=== PATIENT | male | born 1960 | race American Indian/Alaskan Native ===

== ENCOUNTER 2018-12-29 13:13 | Inpatient (IN) | payer BC ==
[2018-12-29] MEDS ORDERED: SODIUM CHLORIDE 0.9% 500 ML 500 ML IV ONE ×2 (13:30→15:16)
--- NOTE | 2018-12-29 13:32 | Emergency Department Report ---
ED Shortness of Breath HPI - General Chief Complaint: Dyspnea/Respdistress Stated Complaint: SHELBY Time Seen by Provider: 12/29/18 13:17 Source: patient, RN notes reviewed Mode of arrival: Stretcher Limitations: No Limitations - History of Present Illness Initial Comments: This is a 58-year-old gentleman. This patient is not known to this provider previously. The patient recently had elective outpatient orthopedic surgery performed. He reports no other significant past medical history. He presents to the ER today with complaint of pain with shortness of breath. This started over the past 3 days. This is new or different for him. He reports that his father may have had a history of "blood clots", but is not sure. He denies physical pain at this time. Shortness of breath is constant, worsens with physical exertion, and it decreases with rest. The patient denies headache, neck pain, chest pain, abdominal pain, hematemesis, bright red blood per rectum. He denies orthopnea. MD Complaint: shortness of breath -: Gradual, days(s) Consistency: constant Improves With: other Worsens With: other Known History Of: other Context: other - Related Data Home Medications Medication Instructions Recorded Confirmed Last Taken Aspirin EC 81 mg PO BID 12/29/18 12/29/18 Unknown Ondansetron 4 mg PO Q8HR PRN 12/29/18 12/29/18 Unknown oxyCODONE /ACETAMINOPHEN 5 mg PO PRN PRN 12/29/18 12/29/18 Unknown Previous Rx's Medication Instructions Recorded Last Taken Type Ferrous Gluconate [Ferrous 324 mg PO DAILY #30 tablet 12/31/18 Unknown Rx Gluconate 324 MG] Folic Acid/Vit Bcomp&C/Cu/Znox 1 each PO QDAY #30 tablet 12/31/18 Unknown Rx [Folbee Plus Cz] Doxycycline Hyclate [Doxycycline 100 mg PO Q12HR #14 tab 01/05/19 Unknown Rx Hyclate TAB] cefUROXime [Ceftin] 500 mg PO Q12H #28 tablet 01/05/19 Unknown Rx Allergies Allergy/AdvReac Type Severity Reaction Status Date / Time No Known Allergies Allergy Unverified 12/29/18 14:01 ED Review of Systems ROS: Stated complaint: SHELBY Other details as noted in HPI Constitutional: denies: fever Eyes: denies: eye discharge ENT: denies: congestion Respiratory: shortness of breath Cardiovascular: denies: syncope Gastrointestinal: denies: nausea, vomiting, diarrhea, hematemesis, melena, hematochezia Genitourinary: denies: dysuria Musculoskeletal: denies: myalgia Skin: denies: lesions Neurological: denies: headache, numbness, paresthesias, confusion Hematological/Lymphatic: denies: easy bleeding ED Past Medical Hx - Past Medical History Previous Medical History?: No - Surgical History Past Surgical History?: Yes Additional Surgical History: Tib/Fib fracture/surgery - Social History Smoking Status: Never Smoker Substance Use Type: None - Medications Home Medications: Home Medications Medication Instructions Recorded Confirmed Last Taken Type Aspirin EC 81 mg PO BID 12/29/18 12/29/18 Unknown History Ondansetron 4 mg PO Q8HR PRN 12/29/18 12/29/18 Unknown History oxyCODONE /ACETAMINOPHEN 5 mg PO PRN PRN 12/29/18 12/29/18 Unknown History Ferrous Gluconate [Ferrous 324 mg PO DAILY #30 tablet 12/31/18 Unknown Rx Gluconate 324 MG] Folic Acid/Vit Bcomp&C/Cu/Znox 1 each PO QDAY #30 tablet 12/31/18 Unknown Rx [Folbee Plus Cz] Doxycycline Hyclate [Doxycycline 100 mg PO Q12HR #14 tab 01/05/19 Unknown Rx Hyclate TAB] cefUROXime [Ceftin] 500 mg PO Q12H #28 tablet 01/05/19 Unknown Rx ED Physical Exam - General Limitations: No Limitations General appearance: alert, in no apparent distress - Head Head exam: Present: atraumatic, normocephalic - Eye Eye exam: Present: normal appearance, EOMI. Absent: nystagmus - ENT ENT exam: Present: normal exam, normal orophraynx, mucous membranes moist, normal external ear exam - Neck Neck exam: Present: normal inspection, full ROM. Absent: tenderness, meningismus - Respiratory Respiratory exam: Present: normal lung sounds bilaterally. Absent: respiratory distress - Cardiovascular Cardiovascular Exam: Present: normal rhythm, tachycardia, normal heart sounds. Absent: bradycardia, systolic murmur, diastolic murmur, rubs, gallop - GI/Abdominal GI/Abdominal exam: Present: soft. Absent: distended, tenderness, guarding, rebound, rigid, pulsatile mass - Rectal Rectal exam: Present: deferred - Extremities Exam Extremities exam: Present: normal inspection, other (2+ pulses noted in the bilateral upper, lower extremities. There is no redness, pus or streaking. There is no palpable cord.). Absent: tenderness, calf tenderness - Back Exam Back exam: Present: normal inspection. Absent: tenderness, CVA tenderness (R), CVA tenderness (L), paraspinal tenderness, vertebral tenderness - Neurological Exam Neurological exam: Present: alert, other (there is no facial droop. The tongue is midline. Extraocular movements are intact bilaterally. Patient speaking in full complete sentences. Shoulder shrug is intact bilaterally. Hearing is grossly intact bilaterally. Visual acuity intact to finger counting and color perception at a close distance. 5/5 strength 4 extremities. Sensation intact to light touch in 4 extremities.) - Psychiatric Psychiatric exam: Present: flat affect - Skin Skin exam: Present: warm, dry, intact, normal color. Absent: rash ED Course Vital Signs 12/29/18 12/29/18 12/29/18 13:22 13:27 13:29 Temperature 98.4 F 98.4 F Pulse Rate 16 L 120 H Pulse Rate [ Right Radial] Respiratory 16 18 16 Rate Blood Pressure 168/80 Blood Pressure 168/80 [Right] O2 Sat by Pulse 99 100 100 Oximetry 12/29/18 12/29/18 12/29/18 15:10 15:17 16:55 Temperature Pulse Rate 110 H 106 H Pulse Rate [ 99 H Right Radial] Respiratory 16 16 16 Rate Blood Pressure Blood Pressure 126/63 205/106 [Right] O2 Sat by Pulse 97 96 Oximetry 12/29/18 17:23 Temperature Pulse Rate Pulse Rate [ Right Radial] Respiratory Rate Blood Pressure Blood Pressure [Right] O2 Sat by Pulse 97 Oximetry - Reevaluation(s) Reevaluation #1: 12/29/18 14:45 Differential diagnosis, including but not limited to: Symptomatic anemia, pericardial effusion, pulmonary embolism, pneumonia, acute coronary syndrome Assessment and plan: 58-year-old gentleman status post recent outpatient orthopedic surgery, with painless shortness of breath, concerning for pulmonary embolism. Bedside transthoracic echocardiogram performed by myself, of poor quality secondary to body habitus, however, no gross large effusion is noted, left ventricular ejection fraction appears to be 50-55%, there is question dilated right-sided atrium. We have recommended emergent CT scan of the chest to exclude pulmonary embolism. Leukocytosis is reviewed and appreciated, do not suspect infectious insult at this time, however, this may be a stress reaction secondary to probable pulmonary embolus Reevaluation #2: 12/29/18 15:24 Laboratory studies demonstrate hyperkalemia, renal insufficiency, hyponatremia. Renal insufficiency laboratory studies ordered. Hyperkalemia cocktail ordered. Albuterol held given possibility of atrial tachycardia. Extensive discussion had with patient. We discussed CT scan with IV contrast versus nuclear medicine study. Patient concerned about renal insufficiency at this time. He states he would prefer to have a nuclear medicine study. Nuclear medicine study is ordered. Vascular lab bilateral duplex study is ordered. Nephrology consult is requested. Hospitalist physician has been paged. Reevaluation #3: 12/29/18 15:33 Heparin drip has been ordered. Discussed case with Hospital physician, , who accepts the patient to the medical service. We will obtain inpatient ne phrology consult as well, discussed the case with Dr. Emily Childress, who will follow in consultation. He agrees with not administering albuterol at this time, given concern for atrial tachycardia. The admitting hospitalist physician has agreed to follow-up on inpatient diagnostic studies. Reevaluation #4: 12/29/18 15:55 Laboratory studies, lactic acidosis, leukocytosis, and physiologic abnormalities are appreciated. Suspect this is likely response to large clot burden, based off of the history and physical, we do not suspect acute infectious insult. The admitting hospital physician and myself agree to withhold empiric antibiotic therapy at this time. Patient's left lower extremities surgical site appears to be clean, with no redness, pus or streaking. He does not endorse any bleeding. ED Medical Decision Making - Lab Data Result diagrams: 12/31/18 04:05 01/01/19 03:39 Vital Signs 12/29/18 12/29/18 12/29/18 13:22 13:27 13:29 Temperature 98.4 F 98.4 F Pulse Rate 16 L 120 H Respiratory 16 18 16 Rate Blood Pressure 168/80 Blood Pressure 168/80 [Right] O2 Sat by Pulse 99 100 100 Oximetry Lab Results 12/29/18 Range/Units 13:23 WBC 34.5 H (4.5-11.0) K/mm3 RBC 2.91 L (3.65-5.03) M/mm3 Hgb 7.7 L (11.8-15.2) gm/dl Hct 24.3 L (35.5-45.6) % MCV 84 (84-94) fl MCH 26 L (28-32) pg MCHC 32 (32-34) % RDW 17.6 H (13.2-15.2) % Plt Count 599 H (140-440) K/mm3 Lymph # [employer] Vital Signs 12/29/18 12/29/18 12/29/18 13:22 13:27 13:29 Temperature 98.4 F 98.4 F Pulse Rate 16 L 120 H Respiratory 16 18 16 Rate Blood Pressure 168/80 Blood Pressure 168/80 [Right] O2 Sat by Pulse 99 100 100 Oximetry Lab Results 12/29/18 Range/Units 13:23 WBC 34.5 H (4.5-11.0) K/mm3 RBC 2.91 L (3.65-5.03) M/mm3 Hgb 7.7 L (11.8-15.2) gm/dl Hct 24.3 L (35.5-45.6) % MCV 84 (84-94) fl MCH 26 L (28-32) pg MCHC 32 (32-34) % RDW 17.6 H (13.2-15.2) % Plt Count 599 H (140-440) K/mm3 Lymph # [employer] Vital Signs 12/29/18 12/29/18 12/29/18 13:22 13:27 13:29 Temperature 98.4 F 98.4 F Pulse Rate 16 L 120 H Respiratory 16 18 16 Rate Blood Pressure 168/80 Blood Pressure 168/80 [Right] O2 Sat by Pulse 99 100 100 Oximetry 12/29/18 12/29/18 15:10 15:17 Temperature Pulse Rate 110 H 106 H Respiratory 16 16 Rate Blood Pressure Blood Pressure 126/63 205/106 [Right] O2 Sat by Pulse 97 96 Oximetry Lab Results 12/29/18 12/29/18 12/29/18 Range/Units 13:23 13:23 13:23 WBC 34.5 H (4.5-11.0) K/mm3 RBC 2.91 L (3.65-5.03) M/mm3 Hgb 7.7 L (11.8-15.2) gm/dl Hct 24.3 L (35.5-45.6) % MCV 84 (84-94) fl MCH 26 L (28-32) pg MCHC 32 (32-34) % RDW 17.6 H (13.2-15.2) % Plt Count 599 H (140-440) K/mm3 Lymph # [employer] PT 14.6 (12.2-14.9) Sec. INR 1.17 H (0.87-1.13) D-Dimer 493.25 H (0-234) ng/mlDDU Sodium 128 L (137-145) mmol/L Potassium 5.8 H (3.6-5.0) mmol/L Chloride 88.5 L (98-107) mmol/L Carbon Dioxide 22 (22-30) mmol/L Anion Gap 23 mmol/L BUN 41 H (9-20) mg/dL Creatinine 1.5 (0.8-1.5) mg/dL Estimated GFR 48 ml/min BUN/Creatinine Ratio 27 % Glucose 276 H (75-100) mg/dL Calcium 10.1 (8.4-10.2) mg/dL Magnesium 2.60 H (1.7-2.3) mg/dL Total Bilirubin 0.40 (0.1-1.2) mg/dL AST 18 (5-40) units/L ALT 19 (7-56) units/L Alkaline Phosphatase 76 (35-129) units/L Troponin T < 0.010 (0.00-0.029) ng/mL NT-Pro-B Natriuret Pep (0-900) pg/mL Total Protein 7.2 (6.3-8.2) g/dL Albumin 3.7 L (3.9-5) g/dL Albumin/Globulin Ratio 1.1 % 12/29/18 Range/Units 13:23 WBC (4.5-11.0) K/mm3 RBC (3.65-5.03) M/mm3 Hgb (11.8-15.2) gm/dl Hct (35.5-45.6) % MCV (84-94) fl MCH (28-32) pg MCHC (32-34) % RDW (13.2-15.2) % Plt Count (140-440) K/mm3 Lymph # PT (12.2-14.9) Sec. INR (0.87-1.13) D-Dimer (0-234) ng/mlDDU Sodium (137-145) mmol/L Potassium (3.6-5.0) mmol/L Chloride (98-107) mmol/L Carbon Dioxide (22-30) mmol/L Anion Gap mmol/L BUN (9-20) mg/dL Creatinine (0.8-1.5) mg/dL Estimated GFR ml/min BUN/Creatinine Ratio % Glucose (75-100) mg/dL Calcium (8.4-10.2) mg/dL Magnesium (1.7-2.3) mg/dL Total Bilirubin (0.1-1.2) mg/dL AST (5-40) units/L ALT (7-56) units/L Alkaline Phosphatase (35-129) units/L Troponin T (0.00-0.029) ng/mL NT-Pro-B Natriuret Pep 291.6 (0-900) pg/mL Total Protein (6.3-8.2) g/dL Albumin (3.9-5) g/dL Albumin/Globulin Ratio % - EKG Data -: EKG Interpreted by Pa Rate: tachycardia - EKG Data When compared to previous EKG there are: previous EKG unavailable 12/29/18 14:47 There is no prior EKG available for comparison. This EKG shows a tachycardic rate, ? sinus vs atrial tachycardia, there is an extreme rightward axis deviation, there is a right bundle branch block, the QTC is prolonged, there is borderline left ventricular hypertrophy, the EKG is abnormal, there is no chest pain, the EKG is not consistent with ST elevation myocardial infarction. - Radiology Data Radiology results: pending, report reviewed, image reviewed Print Report Referring Physician: KULDEEP MATUTE Patient Name: DANII HENDERSON Date of : 1960 Sex: Male Report Date: 2018-12-29 Report Status: Finalized Findings [facility] [address] [place] [address] XRay Report Signed Patient: DANII HENDERSON MR#: [id number] : 1960 Acct:[id number] Age/Sex: 58 / M ADM Date: 12/29/18 Loc: ED Attending Dr: Ordering Physician: KULDEEP MATUTE MD Date of Service: 12/29/18 Procedure(s): XR chest 1V ap Accession Number(s): [id number] cc: KULDEEP MATUTE MD Fluoro Time In Minutes: CHEST 1 VIEW INDICATION: Dyspnea. COMPARISON: None FINDINGS: Support devices: None. Heart: Within normal limits. Lungs/Pleura: No acute air space or interstitial disease. Additional findings: None. IMPRESSION: No acute findings. Signer Name: Nnamdi Petit Jr, MD Signed: 12/29/2018 2:11 PM Workstation Name: [id number] Transcribed By: TTR Dictated By: NNAMDI PETIT JR, MD Electronically Authenticated By: NNAMDI PETIT JR, MD Signed Date/Time: 12/29/18 1411 Critical Care Time: Yes Critical care time in (mins) excluding proc time.: 60 Critical care attestation.: If time is entered above; I have spent that time in minutes in the direct care of this critically ill patient, excluding procedure time. ED Disposition Clinical Impression: Acute dyspnea, Abnormal EKG, FARHAD (acute kidney injury), Hyperkalemia Disposition: OP ADMIT IP TO THIS HOSP Is pt being admited?: Yes Condition: Serious
[2018-12-29 14:04] LABS: Hematocrit 24.3 % (35.5-45.6); Hemoglobin 7.7 gm/dl (11.8-15.2); Mean Corpuscular HGB Conc 32 % (32-34); Mean Corpuscular Volume 84 fl (84-94); Platelet Count 599 K/mm3 (140-440); Red Blood Count 2.91 M/mm3 (3.65-5.03); Red Cell Distribution Width 17.6 % (13.2-15.2)
--- NOTE | 2018-12-29 14:16 | XRay Report ---
CHEST 1 VIEW INDICATION: Dyspnea. COMPARISON: None FINDINGS: Support devices: None. Heart: Within normal limits. Lungs/Pleura: No acute air space or interstitial disease. Additional findings: None. IMPRESSION: No acute findings. Signer Name: Nnamdi Petit Jr, MD Signed: 12/29/2018 2:11 PM Workstation Name: [id number]
[2018-12-29] MEDS ORDERED: HEPARIN 10,000 UNITS/10 ML VIAL IV ONE (14:46)
[2018-12-29 14:51] LABS: INR 1.17 (0.87-1.13)
[2018-12-29] MEDS ORDERED: HEPARIN/ 0.45% NACL DRIP 25,000 UNIT/500 ML BAG IV SCH (15:00)
[2018-12-29] MEDS ORDERED: HEPARIN/ 0.45% NACL DRIP 25,000 UNIT/500 ML BAG ONE (15:04)
[2018-12-29 15:10] LABS: Alanine Aminotransferase 19 units/L (7-56); Albumin 3.7 g/dL (3.9-5); BUN/Creatinine Ratio 27; Blood Urea Nitrogen 41 mg/dL (9-20); Calcium 10.1 mg/dL (8.4-10.2); Hemolysis Index 1
[2018-12-29] MEDS ORDERED: SODIUM POLYSTYRENE 15 GM/60 ML ORAL LIQD PO ONE (15:23)
[2018-12-29] MEDS ORDERED: SODIUM BICARB 8.4% 50 MEQ/50 ML SYRINGE IV ONE (15:23)
[2018-12-29] MEDS ORDERED: INSULIN REGULAR, HUMAN 100 UNITS/1 ML IV ONE (15:23)
[2018-12-29 15:31] LABS: INR 1.2 (0.87-1.13)
[2018-12-29] MEDS ORDERED: CALCIUM GLUCONATE 2,000 MG in SODIUM CHLORIDE 0.9% 100 ML IV ONE (16:23)
--- NOTE | 2018-12-29 17:02 | Nuclear Medicine Report ---
NM lung scan perf/vent INDICATION / CLINICAL INFORMATION: dyspnea. TRACER: Xenon-133 gas 12.2 mCi inhalation and technetium 99m MAA 5.2 mCi IV injection. COMPARISON: No relevant prior imaging study available. FINDINGS: Nuclear medicine ventilation and perfusion lung imaging were performed. Both are relatively homogeneo us. Negative for suspicious ventilation or perfusion defect. IMPRESSION: Low probability for pulmonary embolus. Signer Name: Michael Adair MD Signed: 12/29/2018 4:58 PM Workstation Name: [id number]
[2018-12-29 18:08] LABS: Basophils % (Manual) 0 % (0.0-1.8); Eosinophils % (Manual) 0 % (0.0-4.3); Large Platelets 1+; Myelocytes # (Manual) 0.7 K/mm3; Nucleated Red Blood Cells 1.5 % (0.0-0.9); Platelet Estimate Appears Increased; Total Cells Counted 200
[2018-12-29 18:09] LABS: Anisocytosis 1+; Hypochromasia 1+; Poikilocytosis 1+
[2018-12-29] MEDS ORDERED: ACETAMINOPHEN 325 MG TAB PO PRN (20:55)
[2018-12-29] MEDS ORDERED: ONDANSETRON 4 MG/2 ML INJ IV PRN (20:55)
[2018-12-29] MEDS ORDERED: HYDROmorphone 1 MG/1 ML INJ IV PRN (20:55)
[2018-12-29] MEDS ORDERED: oxyCODONE /ACETAMINOPHEN 5-325MG TAB PO PRN (20:55)
[2018-12-29] MEDS ORDERED: SODIUM CHLORIDE 0.9% 1000 ML 1,000 ML IV SCH (21:00)
[2018-12-29 22:59] LABS: Calcium 9.2 mg/dL (8.4-10.2)
--- NOTE | 2018-12-30 00:16 | Vascular Lab Report ---
DUPLEX DOPPLER LOWER EXTREMITY VEINS, BILATERAL INDICATION / CLINICAL INFORMATION: sob suspect pe. Acute dyspnea with shortness of breath. TECHNIQUE: Duplex doppler imaging was performed through the veins of both lower extremities using venous inocencia juvencio and other maneuvers. COMPARISON: None available. FINDINGS: RIGHT COMMON FEMORAL VEIN: Negative. RIGHT FEMORAL VEIN: Negative. RIGHT POPLITEAL VEIN: Negative. RIGHT CALF VEINS: Negative. LEFT COMMON FEMORAL VEIN: Negative. LEFT FEMORAL VEIN: Negative. LEFT POPLITEAL VEIN: Negative. LEFT CALF VEINS: Negative. ADDITIONAL FINDINGS: None. IMPRESSION: 1. No sonographic evidence for DVT in either lower extremity. Signer Name: Brit Jade MD Signed: 12/30/2018 12:12 AM Workstation Name: [id number]
[2018-12-30 01:12] LABS: Creatinine,Urine 105.6 mg/dL (0.1-20.0)
[2018-12-30] MEDS: SODIUM POLYSTYRENE 15 GM/60 ML ORAL LIQD PO ONE ×2 (01:49→02:42)
[2018-12-30] MEDS ORDERED: ONDANSETRON 4 MG/2 ML INJ IV ONE (02:17)
[2018-12-30] MEDS ORDERED: DEXTROSE 50% IN WATER (25GM) 50 ML SYRINGE IV ONE ×2 (03:05→10:28)
[2018-12-30] MEDS ORDERED: INSULIN REGULAR, HUMAN 100 UNITS/1 ML IV ONE ×2 (03:05→10:28)
[2018-12-30 04:33] LABS: Hemoglobin 6.1 gm/dl (11.8-15.2); Mean Corpuscular HGB Conc 32 % (32-34); Mean Corpuscular Volume 84 fl (84-94); Platelet Count 447 K/mm3 (140-440); Red Blood Count 2.29 M/mm3 (3.65-5.03); Red Cell Distribution Width 17.6 % (13.2-15.2)
[2018-12-30 04:36] LABS: Hematocrit 19.3 % (35.5-45.6)
[2018-12-30] MEDS ORDERED: SODIUM CHLORIDE 0.9% 500 ML 500 ML IV ONE ×2 (04:51→07:04)
[2018-12-30 04:52] LABS: Albumin 3.3 g/dL (3.9-5)
[2018-12-30 05:21] LABS: Basophils % (Manual) 0 % (0.0-1.8); Eosinophils % (Manual) 0 % (0.0-4.3); Total Cells Counted 100
[2018-12-30 05:22] LABS: Anisocytosis 1+; Hypochromasia 1+; Platelet Estimate Consistent w Auto
--- NOTE | 2018-12-30 06:48 | History and Physical Report ---
History of Present Illness Date of examination: 12/29/18 Date of admission: 12/29/18 15:34 Chief complaint: Sob for 3 days History of present illness: 58-year-old gentleman presents to the ER today with complaint of shortness of breath. This started over the past 3 days. SOB on minimal exertion.Occasional chest pain.No significant pmh.Had Tib Fib fx few months ago and hardware was removed recently. Past Medical History Previous Medical History?: No Surgical History Past Surgical History?: Yes Additional Surgical History: Tib/Fib fracture/surgery Social History Smoking Status: Never Smoker Substance Use Type: None Family History Htn,PE Medications Home Medications: Home Medications Medication Instructions Recorded Confirmed Last Taken Type Aspirin EC 81 mg PO BID 12/29/18 12/29/18 Unknown History Cephalexin 500 mg PO Q6HR 12/29/18 12/29/18 Unknown History Ondansetron 4 mg PO Q8HR PRN 12/29/18 12/29/18 Unknown History Sulfamethoxazole/Trimethoprim 800 mg PO BID 12/29/18 12/29/18 Unknown History oxyCODONE /ACETAMINOPHEN 5 mg PO PRN PRN 12/29/18 12/29/18 Unknown History Review of systems ROS: Stated complaint: SHELBY Other details as noted in HPI Constitutional: denies: fever Eyes: denies: eye discharge ENT: denies: congestion Respiratory: shortness of breath Cardiovascular: denies: syncope Gastrointestinal: denies: nausea, vomiting, diarrhea, hematemesis, melena, hematochezia Genitourinary: denies: dysuria Musculoskeletal: denies: myalgia Skin: denies: lesions Neurological: denies: headache, numbness, paresthesias, confusion Hematological/Lymphatic: denies: easy bleeding Medications and Allergies Allergies Allergy/AdvReac Type Severity Reaction Status Date / Time No Known Allergies Allergy Unverified 12/29/18 14:01 Home Medications Medication Instructions Recorded Confirmed Last Taken Type Aspirin EC 81 mg PO BID 12/29/18 12/29/18 Unknown History Cephalexin 500 mg PO Q6HR 12/29/18 12/29/18 Unknown History Ondansetron 4 mg PO Q8HR PRN 12/29/18 12/29/18 Unknown History Sulfamethoxazole/Trimethoprim 800 mg PO BID 12/29/18 12/29/18 Unknown History oxyCODONE /ACETAMINOPHEN 5 mg PO PRN PRN 12/29/18 12/29/18 Unknown History Active Meds: Active Medications Acetaminophen (Tylenol) 650 mg PO Q4H PRN PRN Reason: Pain MILD(1-3)/Fever >100.5/HURTADO Hydromorphone HCl (Dilaudid) 0.5 mg IV Q3H PRN PRN Reason: Pain , Severe (7-10) Heparin Sodium/Sodium Chloride (Heparin/ 0.45% Nacl-25,000 Unit/500 Ml) 25,000 unit in 500 mls @ 30 mls/hr IV TITR TRISTON; Protocol Last Titration: 12/30/18 04:55 Dose: 0 units/hr, 0 mls/hr Documented by: Sodium Chloride (Nacl 0.9% 1000 Ml) 1,000 mls @ 100 mls/hr IV DIRECT TRISTON Stop: 12/30/18 11:00 Last Admin: 12/29/18 21:09 Dose: 100 mls/hr Documented by: Ondansetron HCl (Zofran) 4 mg IV Q8H PRN PRN Reason: Nausea And Vomiting Last Admin: 12/29/18 21:09 Dose: 4 mg Documented by: Oxycodone/Acetaminophen (Percocet 5/325) 1 tab PO Q6H PRN PRN Reason: Pain, Moderate (4-6) Sodium Chloride (Sodium Chloride Flush Syringe 10 Ml) 10 ml IV BID [facility] Last Admin: 12/29/18 21:34 Dose: 10 ml Documented by: Sodium Chloride (Sodium Chloride Flush Syringe 10 Ml) 10 ml IV PRN PRN PRN Reason: LINE FLUSH Exam - Constitutional Vitals: Temp Pulse Resp BP Pulse Ox 98.8 F 86 16 120/57 100 12/30/18 03:32 12/30/18 06:00 12/30/18 06:00 12/30/18 06:00 12/30/18 06:00 General appearance: Present: no acute distress, well-nourished - EENT Eyes: Present: PERRL ENT: hearing intact, clear oral mucosa - Neck Neck: Present: supple, normal ROM - Respiratory Respiratory effort: normal Respiratory: bilateral: CTA - Cardiovascular Rhythm: regular (114) Heart Sounds: Present: S1 & S2. Absent: rub, click - Extremities Extremities: pulses symmetrical, No edema Peripheral Pulses: within normal limits - Abdominal General gastrointestinal: Present: soft, non-tender, non-distended, normal bowel sounds Male genitourinary: Present: normal - Integumentary Integumentary: Present: clear, warm, dry - Musculoskeletal Musculoskeletal: gait normal, strength equal bilaterally - Psychiatric Psychiatric: appropriate mood/affect, intact judgment & insight - Neurologic Neurologic: CNII-XII intact, moves all extremities Results - Labs CBC & Chem 7: 12/30/18 04:08 12/30/18 04:08 Labs: Laboratory Last Values WBC 26.4 K/mm3 (4.5-11.0) H 12/30/18 04:08 RBC 2.29 M/mm3 (3.65-5.03) L 12/30/18 04:08 Hgb 6.1 gm/dl (11.8-15.2) L 12/30/18 04:08 Hct 19.3 % (35.5-45.6) L* 12/30/18 04:08 MCV 84 fl (84-94) 12/30/18 04:08 MCH 27 pg (28-32) L 12/30/18 04:08 MCHC 32 % (32-34) 12/30/18 04:08 RDW 17.6 % (13.2-15.2) H 12/30/18 04:08 Plt Count 447 K/mm3 (140-440) H 12/30/18 04:08 Lymph # Electric Power Superintendent 12/29/18 13:23 Add Manual Diff Complete 12/30/18 04:08 Total Counted 100 12/30/18 04:08 Seg Neuts % (Manual) 85.0 % (40.0-70.0) H 12/30/18 04:08 Band Neutrophils % 0 % 12/30/18 04:08 Lymphocytes % (Manual) 12.0 % (13.4-35.0) L 12/30/18 04:08 Reactive Lymphs % (Man) 0 % 12/30/18 04:08 Monocytes % (Manual) 3.0 % (0.0-7.3) 12/30/18 04:08 Eosinophils % (Manual) 0 % (0.0-4.3) 12/30/18 04:08 Basophils % (Manual) 0 % (0.0-1.8) 12/30/18 04:08 Metamyelocytes % 0 % 12/30/18 04:08 Myelocytes % 0 % 12/30/18 04:08 Promyelocytes % 0 % 12/30/18 04:08 Blast Cells % 0 % 12/30/18 04:08 Nucleated RBC % 2.0 % (0.0-0.9) H 12/30/18 04:08 Seg Neutrophils # Man 22.4 K/mm3 (1.8-7.7) H 12/30/18 04:08 Band Neutrophils # 0.0 K/mm3 12/30/18 04:08 Lymphocytes # (Manual) 3.2 K/mm3 (1.2-5.4) 12/30/18 04:08 Abs React Lymphs (Man) 0.0 K/mm3 12/30/18 04:08 Monocytes # (Manual) 0.8 K/mm3 (0.0-0.8) 12/30/18 04:08 Eosinophils # (Manual) 0.0 K/mm3 (0.0-0.4) 12/30/18 04:08 Basophils # (Manual) 0.0 K/mm3 (0.0-0.1) 12/30/18 04:08 Metamyelocytes # 0.0 K/mm3 12/30/18 04:08 Myelocytes # 0.0 K/mm3 12/30/18 04:08 Promyelocytes # 0.0 K/mm3 12/30/18 04:08 Blast Cells # 0.0 K/mm3 12/30/18 04:08 WBC Morphology Not Reportable 12/30/18 04:08 Hypersegmented Neuts Not Reportable 12/30/18 04:08 Hyposegmented Neuts Not Reportable 12/30/18 04:08 Hypogranular Neuts Not Reportable 12/30/18 04:08 Smudge Cells Not Reportable 12/30/18 04:08 Toxic Granulation Not Reportable 12/30/18 04:08 Toxic Vacuolation Not Reportable 12/30/18 04:08 Dohle Bodies Not Reportable 12/30/18 04:08 Pelger-Huet Anomaly Not Reportable 12/30/18 04:08 Swapna Rods Not Reportable 12/30/18 04:08 Platelet Estimate Consistent w auto 12/30/18 04:08 Clumped Platelets Not Reportable 12/30/18 04:08 Plt Clumps, EDTA Not Reportable 12/30/18 04:08 Large Platelets Not Reportable 12/30/18 04:08 Giant Platelets Not Reportable 12/30/18 04:08 Platelet Satelliting Not Reportable 12/30/18 04:08 Plt Morphology Comment Not Reportable 12/30/18 04:08 RBC Morphology Not Reportable 12/30/18 04:08 Dimorphic RBCs Not Reportable 12/30/18 04:08 Polychromasia Few 12/30/18 04:08 Hypochromasia 1+ 12/30/18 04:08 Poikilocytosis Not Reportable 12/30/18 04:08 Anisocytosis 1+ 12/30/18 04:08 Microcytosis Not Reportable 12/30/18 04:08 Macrocytosis Not Reportable 12/30/18 04:08 Spherocytes Not Reportable 12/30/18 04:08 Pappenheimer Bodies Not Reportable 12/30/18 04:08 Sickle Cells Not Reportable 12/30/18 04:08 Target Cells Not Reportable 12/30/18 04:08 Tear Drop Cells Not Reportable 12/30/18 04:08 Ovalocytes Not Reportable 12/30/18 04:08 Helmet Cells Not Reportable 12/30/18 04:08 Iglesias-Cosby Bodies Not Reportable 12/30/18 04:08 [place]ledge Rings Not Reportable 12/30/18 04:08 [place] Cells Not Reportable 12/30/18 04:08 Bite Cells Not Reportable 12/30/18 04:08 Crenated Cell Not Reportable 12/30/18 04:08 Elliptocytes Not Reportable 12/30/18 04:08 Acanthocytes (Spur) Not Reportable 12/30/18 04:08 Rouleaux Not Reportable 12/30/18 04:08 Hemoglobin C Crystals Not Reportable 12/30/18 04:08 Schistocytes Not Reportable 12/30/18 04:08 Malaria parasites Not Reportable 12/30/18 04:08 Donnell Bodies Not Reportable 12/30/18 04:08 Hem Pathologist Commnt No 12/30/18 04:08 PT 14.9 Sec. (12.2-14.9) 12/29/18 15:04 INR 1.20 (0.87-1.13) H 12/29/18 15:04 APTT 20.6 Sec. (24.2-36.6) L 12/29/18 15:04 D-Dimer 493.25 ng/mlDDU (0-234) H 12/29/18 13:23 Heparin Anti-Xa Level 0.30 U.I./ml (0.3-0.7) 12/30/18 04:08 Sodium 130 mmol/L (137-145) L 12/30/18 04:08 Potassium 5.3 mmol/L (3.6-5.0) H 12/30/18 04:08 Chloride 93.5 mmol/L (98-107) L 12/30/18 04:08 Carbon Dioxide 26 mmol/L (22-30) 12/30/18 04:08 Anion Gap 16 mmol/L 12/30/18 04:08 BUN 38 mg/dL (9-20) H 12/30/18 04:08 Creatinine 1.5 mg/dL (0.8-1.5) 12/30/18 04:08 Estimated GFR 58 ml/min 12/30/18 04:08 BUN/Creatinine Ratio 25 % 12/30/18 04:08 Glucose 207 mg/dL (75-100) H 12/30/18 04:08 POC Glucose 183 (70-105) H 12/29/18 18:01 Hemoglobin A1c 6.8 % (4-6) H 12/29/18 20:56 Lactic Acid 3.80 mmol/L (0.7-2.0) H* 12/29/18 15:04 Uric Acid 8.5 mg/dL (3.5-7.6) H 12/29/18 15:33 Calcium 9.0 mg/dL (8.4-10.2) 12/30/18 04:08 Magnesium 2.60 mg/dL (1.7-2.3) H 12/29/18 13:23 Total Bilirubin 0.50 mg/dL (0.1-1.2) 12/30/18 04:08 AST 17 units/L (5-40) 12/30/18 04:08 ALT 11 units/L (7-56) 12/30/18 04:08 Alkaline Phosphatase 63 units/L (35-129) 12/30/18 04:08 Total Creatine Kinase 43 units/L (55-170) L 12/29/18 15:33 Troponin T < 0.010 ng/mL (0.00-0.029) 12/29/18 13:23 NT-Pro-B Natriuret Pep 291.6 pg/mL (0-900) 12/29/18 13:23 Total Protein 6.3 g/dL (6.3-8.2) 12/30/18 04:08 Albumin 3.3 g/dL (3.9-5) L 12/30/18 04:08 Albumin/Globulin Ratio 1.1 % 12/30/18 04:08 TSH 1.380 mlU/mL (0.270-4.200) 12/29/18 15:33 Urine Osmolality 575 Mosm/kg 12/29/18 23:40 Urine Creatinine 105.6 mg/dL (0.1-20.0) H 12/29/18 23:40 Urine Sodium 28 mmol/L 12/29/18 23:40 Blood Type A POSITIVE 12/30/18 05:10 Antibody Screen Negative 12/30/18 05:10 Crossmatch See Detail 12/30/18 05:10 Short CBC 12/29/18 12/30/18 Range/Units 13:23 04:08 WBC 34.5 H 26.4 H (4.5-11.0) K/mm3 Hgb 7.7 L 6.1 L (11.8-15.2) gm/dl Hct 24.3 L 19.3 L* (35.5-45.6) % Plt Count 599 H 447 H (140-440) K/mm3 BMP 12/29/18 12/29/18 12/29/18 13:23 22:26 23:39 Sodium 128 L 128 L Potassium 5.8 H 6.0 H 5.6 H Chloride 88.5 L 92.3 L Carbon Dioxide 22 24 BUN 41 H 40 H Creatinine 1.5 1.5 Glucose 276 H 198 H Calcium 10.1 9.2 12/30/18 04:08 Sodium 130 L Potassium 5.3 H Chloride 93.5 L Carbon Dioxide 26 BUN 38 H Creatinine 1.5 Glucose 207 H Calcium 9.0 Cardiac Enzymes 12/29/18 12/29/18 Range/Units 13:23 15:33 Total Creatine Kinase 43 L (55-170) units/L Troponin T < 0.010 (0.00-0.029) ng/mL Liver Function 12/29/18 12/30/18 Range/Units 13:23 04:08 Total Bilirubin 0.40 0.50 (0.1-1.2) mg/dL AST 18 17 (5-40) units/L ALT 19 11 (7-56) units/L Alkaline Phosphatase 76 63 (35-129) units/L Albumin 3.7 L 3.3 L (3.9-5) g/dL - Imaging and Cardiology EKG: report reviewed (Sinus tach RBBB) Chest x-ray: report reviewed Imaging and Cardiology: V/q scan low probability CXR NAF Assessment and Plan Assessment and plan: CCT 38 min Advance Directives: Yes (Full code) VTE prophylaxis?: Chemical, Mechanical Plan of care discussed with patient/family: Yes - Patient Problems (1) Sepsis Current Visit: Yes Status: Acute Qualifiers: Sepsis type: sepsis due to unspecified organism Sepsis acute organ dysfunction status: unspecified Qualified Code(s): A41.9 - Sepsis, unspecified organism Plan to address problem: Empiric abxNo source of infection Leukemias to be considered Hem onc consult Empiric abx (2) Symptomatic anemia Current Visit: Yes Status: Acute Plan to address problem: Hemolysis?? No source of bleeding Transfuse 2 units of prbc Hem onc consult requested (3) Hyponatremia Current Visit: Yes Status: Acute Plan to address problem: IV Ns for now (4) FARHAD (acute kidney injury) Current Visit: Yes Status: Acute Plan to address problem: IV fluids for now (5) Hyperkalemia Current Visit: Yes Status: Acute Plan to address problem: Treated in ER with Kayexalate and Calcium gluconate (6) DVT prophylaxis Current Visit: Yes Status: Acute Plan to address problem: on scd's and GI prophylaxis
[2018-12-30] MEDS ORDERED: VANCOMYCIN PHARMACY TO DOSE IV SCH ×2 (07:00→08:00)
--- NOTE | 2018-12-30 07:12 | Event Note ---
Date: 12/29/18 Heparin drip was started because of presumed diagnosis of Acute PE pending VQ scan Heparin drip stopped
[2018-12-30] MEDS ORDERED: CALCIUM GLUCONATE 2,000 MG in SODIUM CHLORIDE 0.9% 100 ML IV ONE (07:14)
[2018-12-30] MEDS ORDERED: SODIUM POLYSTYRENE 15 GM/60 ML ORAL LIQD PO NR (08:10)
[2018-12-30] MEDS ORDERED: VANCOMYCIN 2,000 MG in SODIUM CHLORIDE 0.9% 500 ML 500 ML IV ONE (08:30)
[2018-12-30] MEDS: CEFEPIME/NS 2 GM/100 ML 2 GM/100 ML BAG IV SCH ×3 (08:45→22:36)
[2018-12-30 09:05] LABS: Iron 20 ug/dL (49-181); Total Iron Binding Capacity 311 mcg/dL (250-450)
--- NOTE | 2018-12-30 09:59 | Consultation ---
History of Present Illness - Reason for Consult Consult date: 12/30/18 hyperkalemia - History of Present Illness The patient is a58 YO male with history significant for Obesity who presented to [facility] ED yesterday with SOB of 3 days duration. The patient had elective L LE hardware removed on 12/24/2018. Patient also reports 2 weeks h/o intermittent fever, dysuria, pinkish urine, muscle ache, one episode of vomiting, diarrhea, decreased appetite and poor PO intake. He was diagnosed with UTI and prescribed Bactrim on 12/19/2018. Patient denies abd pain, rash, melena, jaundice, cp, dizziness or syncope. Labs significant for Creatinine 1.5, K 6 and Hb 6.1. Nephrology was consulted for further evaluation. Medications and Allergies Allergies Allergy/AdvReac Type Severity Reaction Status Date / Time No Known Allergies Allergy Unverified 12/29/18 14:01 Home Medications Medication Instructions Recorded Confirmed Last Taken Type Aspirin EC 81 mg PO BID 12/29/18 12/29/18 Unknown History Cephalexin 500 mg PO Q6HR 12/29/18 12/29/18 Unknown History Ondansetron 4 mg PO Q8HR PRN 12/29/18 12/29/18 Unknown History Sulfamethoxazole/Trimethoprim 800 mg PO BID 12/29/18 12/29/18 Unknown History oxyCODONE /ACETAMINOPHEN 5 mg PO PRN PRN 12/29/18 12/29/18 Unknown History Active Meds: Active Medications Acetaminophen (Tylenol) 650 mg PO Q4H PRN PRN Reason: Pain MILD(1-3)/Fever >100.5/HURTADO Hydromorphone HCl (Dilaudid) 0.5 mg IV Q3H PRN PRN Reason: Pain , Severe (7-10) Sodium Chloride (Nacl 0.9% 1000 Ml) 1,000 mls @ 100 mls/hr IV DIRECT TRISTON Stop: 12/30/18 11:00 Last Admin: 12/29/18 21:09 Dose: 100 mls/hr Documented by: Cefepime HCl (Maxipime/Ns 2 Gm/100 Ml) 2 gm in 100 mls @ 200 mls/hr IV Q8HR TRISTON; Protocol Vancomycin HCl 2,000 mg/ (Sodium Chloride) 540 mls @ 250 mls/hr IV ONCE ONE Stop: 12/30/18 10:39 Vancomycin HCl 1,500 mg/ (Sodium Chloride) 530 mls @ 353.333 mls/hr IV Q12HR [facility] Ondansetron HCl (Zofran) 4 mg IV Q8H PRN PRN Reason: Nausea And Vomiting Last Admin: 12/29/18 21:09 Dose: 4 mg Documented by: Oxycodone/Acetaminophen (Percocet 5/325) 1 tab PO Q6H PRN PRN Reason: Pain, Moderate (4-6) Sodium Chloride (Sodium Chloride Flush Syringe 10 Ml) 10 ml IV BID [facility] Last Admin: 12/29/18 21:34 Dose: 10 ml Documented by: Sodium Chloride (Sodium Chloride Flush Syringe 10 Ml) 10 ml IV PRN PRN PRN Reason: LINE FLUSH Sodium Polystyrene Sulfonate (Kionex) 30 gm PO ONCE NR Stop: 12/30/18 10:00 Review of Systems Constitutional: weight loss, fever, anorexia, fatigue, weakness, poor appetite, no weight gain, no chills Cardiovascular: shortness of breath, dyspnea on exertion, no chest pain, no orthopnea, no palpitations, no edema, no syncope, no lightheadedness, no high blood pressure Respiratory: shortness of breath, dyspnea on exertion, no cough, no hemoptysis, no sleep apnea, no home oxygen Gastrointestinal: nausea, vomiting, diarrhea, no abdominal pain, no melena, no hematochezia, no jaundice Genitourinary Male: dysuria, hematuria, no flank pain Rectal: no bleeding Musculoskeletal: no morning stiffness, no muscle weakness, no muscle cramps Integumentary: no rash, no wounds, no jaundice Neurological: weakness, no paralysis, no convulsions, no aphasia, no change in speech, no change in mentation, no confusion, no memory loss Psychiatric: no memory loss Exam - Vital Signs Vital signs: Vital Signs Temp Pulse Resp BP Pulse Ox 98.4 F 16 L 16 168/80 99 12/29/18 13:22 12/29/18 13:22 12/29/18 13:22 12/29/18 13:22 12/29/18 13:22 - General Appearance General appearance: well-developed, well-nourished, appears stated age, other (not in distress) EENT: ATNC, PERRL, mucous membranes moist, hearing intact, vision intact Neck: Present: neck supple, trachea midline Respiratory: Clear to Ascultation Heart: regular, S1S2, no murmurs Gastrointestinal: Present: normoactive bowel sounds, obese. Absent: tenderness, distended Integumentary: no rash, other (L leg dressing noted) Neurologic: no focal deficit, no asterixis, alert and oriented x3 Musculoskeletal: Present: other (L LE trace edema noted) Results - Lab Results 12/30/18 04:08 12/30/18 04:08 Most recent lab results Calcium 9.0 mg/dL (8.4-10.2) 12/30/18 04:08 Magnesium 2.60 mg/dL (1.7-2.3) H 12/29/18 13:23 Urine Creatinine 105.6 mg/dL (0.1-20.0) H 12/29/18 23:40 Urine Sodium 28 mmol/L 12/29/18 23:40 Assessment and Plan 1. Acute kidney injury: Vasomotor FARHAD in the setting of volume depletion and sepsis. Creatinine level remains the same. Baseline creatinine 1.2. Continue IV fluids. Monitor renal function. Avoid nephrotoxic agents. Meds dosage based on GFR. 2. FEN: Hyperkalemia, patient don't want to take Kayexalate. Insulin-D50 ordered. Start on IV D5NS. Monitor lytes. 3. Anemia: PRBC. 4. SOB / Respiratory distress: V/Q scan with low prob for PE. 5. Sepsis. 6. New onset DM.
[2018-12-30 10:45] LABS: Target Cells 1+
--- NOTE | 2018-12-30 12:05 | Progress Note ---
Assessment and Plan Assessment and plan: 58-year-old man who presented to the hospital complaining of shortness of breath. Patient admitted to recently having orthopedic procedure for tib-fib fracture, denied bloody stool melena or hematemesis Past medical history; denies any chronic medical conditions, states that his father had blood clots but denies having them personally Chest x-ray; no acute findings Lower extremity Dopplers, negative for DVT VQ scan, low probability for PE Labs, revealed anemia, normocytic in nature Hyponatremia, hyperkalemia, mild rise in creatinine, max creatinine 1.5, now 1.2 Diagnosis Anemia, expected outcome after orthopedic surgery Acute kidney injury due to vasomotor nephropathy and ATN Hyperkalemia Plan Transfuse PRBC, IV fluids Hyperkalemia was medically treated DVT prophylaxis with SCDs and early ambulation given anemia History Interval history: Review of systems Constitutional: No fevers, no malaise, no joint pains CVS: No chest pain, no orthopnea, no pedal edema GI: No abdominal pain, no diarrhea, no vomiting, no constipation Respiratory: Continues to have dyspnea on exertion, no wheezing, no coughing Hospitalist Physical - Physical exam Narrative exam: General.: Appears well, no distress, nontoxic HEENT: Moist mucous membranes, extraocular muscles intact, no lymphadenopathy Neck: supple Cardiac: S1-S2 heard Lungs: clear to auscultation bilaterally Abdomen: soft , nontender, nondistended, bowel sounds positive Extremities: no edema clubbing or cyanosis Skin: no rash or lesions Neurologic: no gross focal deficits Psych: calm, and cooperative - Constitutional Vitals: Temp Pulse Resp BP Pulse Ox 98.2 F 92 H 14 111/71 97 12/30/18 09:52 12/30/18 09:00 12/30/18 09:00 12/30/18 09:00 12/30/18 09:00 General appearance: Present: no acute distress, well-nourished Results - Labs CBC & Chem 7: 12/31/18 04:05 12/31/18 04:05 Labs: Laboratory Last Values WBC 26.4 K/mm3 (4.5-11.0) H 12/30/18 04:08 RBC 2.29 M/mm3 (3.65-5.03) L 12/30/18 04:08 Hgb 6.1 gm/dl (11.8-15.2) L 12/30/18 04:08 Hct 19.3 % (35.5-45.6) L* 12/30/18 04:08 MCV 84 fl (84-94) 12/30/18 04:08 MCH 27 pg (28-32) L 12/30/18 04:08 MCHC 32 % (32-34) 12/30/18 04:08 RDW 17.6 % (13.2-15.2) H 12/30/18 04:08 Plt Count 447 K/mm3 (140-440) H 12/30/18 04:08 Lymph # Documentation Designer 12/29/18 13:23 Add Manual Diff Complete 12/30/18 04:08 Total Counted 100 12/30/18 04:08 Seg Neuts % (Manual) 85.0 % (40.0-70.0) H 12/30/18 04:08 Band Neutrophils % 0 % 12/30/18 04:08 Lymphocytes % (Manual) 12.0 % (13.4-35.0) L 12/30/18 04:08 Reactive Lymphs % (Man) 0 % 12/30/18 04:08 Monocytes % (Manual) 3.0 % (0.0-7.3) 12/30/18 04:08 Eosinophils % (Manual) 0 % (0.0-4.3) 12/30/18 04:08 Basophils % (Manual) 0 % (0.0-1.8) 12/30/18 04:08 Metamyelocytes % 0 % 12/30/18 04:08 Myelocytes % 0 % 12/30/18 04:08 Promyelocytes % 0 % 12/30/18 04:08 Blast Cells % 0 % 12/30/18 04:08 Nucleated RBC % 4.0 % (0.0-0.9) H 12/30/18 04:08 Seg Neutrophils # Man 22.4 K/mm3 (1.8-7.7) H 12/30/18 04:08 Band Neutrophils # 0.0 K/mm3 12/30/18 04:08 Lymphocytes # (Manual) 3.2 K/mm3 (1.2-5.4) 12/30/18 04:08 Abs React Lymphs (Man) 0.0 K/mm3 12/30/18 04:08 Monocytes # (Manual) 0.8 K/mm3 (0.0-0.8) 12/30/18 04:08 Eosinophils # (Manual) 0.0 K/mm3 (0.0-0.4) 12/30/18 04:08 Basophils # (Manual) 0.0 K/mm3 (0.0-0.1) 12/30/18 04:08 Metamyelocytes # 0.0 K/mm3 12/30/18 04:08 Myelocytes # 0.0 K/mm3 12/30/18 04:08 Promyelocytes # 0.0 K/mm3 12/30/18 04:08 Blast Cells # 0.0 K/mm3 12/30/18 04:08 Pathologist Review 12/30/18 04:08 WBC Morphology Not Reportable 12/30/18 04:08 Hypersegmented Neuts Not Reportable 12/30/18 04:08 Hyposegmented Neuts Not Reportable 12/30/18 04:08 Hypogranular Neuts Not Reportable 12/30/18 04:08 Smudge Cells Not Reportable 12/30/18 04:08 Toxic Granulation Not Reportable 12/30/18 04:08 Toxic Vacuolation Not Reportable 12/30/18 04:08 Dohle Bodies Not Reportable 12/30/18 04:08 Pelger-Huet Anomaly Not Reportable 12/30/18 04:08 Swapna Rods Not Reportable 12/30/18 04:08 Platelet Estimate Consistent w auto 12/30/18 04:08 Clumped Platelets Not Reportable 12/30/18 04:08 Plt Clumps, EDTA Not Reportable 12/30/18 04:08 Large Platelets Not Reportable 12/30/18 04:08 Giant Platelets Not Reportable 12/30/18 04:08 Platelet Satelliting Not Reportable 12/30/18 04:08 Plt Morphology Comment Not Reportable 12/30/18 04:08 RBC Morphology Not Reportable 12/30/18 04:08 Dimorphic RBCs Not Reportable 12/30/18 04:08 Polychromasia 1+ 12/30/18 04:08 Hypochromasia 1+ 12/30/18 04:08 Poikilocytosis Not Reportable 12/30/18 04:08 Anisocytosis 1+ 12/30/18 04:08 Microcytosis Not Reportable 12/30/18 04:08 Macrocytosis Not Reportable 12/30/18 04:08 Spherocytes Not Reportable 12/30/18 04:08 Pappenheimer Bodies Not Reportable 12/30/18 04:08 Sickle Cells Not Reportable 12/30/18 04:08 Target Cells 1+ 12/30/18 04:08 Tear Drop Cells Not Reportable 12/30/18 04:08 Ovalocytes Not Reportable 12/30/18 04:08 Helmet Cells Not Reportable 12/30/18 04:08 [place] Bodies Not Reportable 12/30/18 04:08 Emmet Rings Not Reportable 12/30/18 04:08 Willis Cells Not Reportable 12/30/18 04:08 Bite Cells Not Reportable 12/30/18 04:08 Crenated Cell Not Reportable 12/30/18 04:08 Elliptocytes Not Reportable 12/30/18 04:08 Acanthocytes (Spur) Not Reportable 12/30/18 04:08 Rouleaux Not Reportable 12/30/18 04:08 Hemoglobin C Crystals Not Reportable 12/30/18 04:08 Schistocytes Not Reportable 12/30/18 04:08 Malaria parasites Not Reportable 12/30/18 04:08 Donnell Bodies Not Reportable 12/30/18 04:08 Hem Pathologist Commnt Sent to pathology 12/30/18 04:08 PT 14.9 Sec. (12.2-14.9) 12/29/18 15:04 INR 1.20 (0.87-1.13) H 12/29/18 15:04 APTT 20.6 Sec. (24.2-36.6) L 12/29/18 15:04 D-Dimer 493.25 ng/mlDDU (0-234) H 12/29/18 13:23 Heparin Anti-Xa Level 0.30 U.I./ml (0.3-0.7) 12/30/18 04:08 Sodium 130 mmol/L (137-145) L 12/30/18 04:08 Potassium 5.3 mmol/L (3.6-5.0) H 12/30/18 04:08 Chloride 93.5 mmol/L (98-107) L 12/30/18 04:08 Carbon Dioxide 26 mmol/L (22-30) 12/30/18 04:08 Anion Gap 16 mmol/L 12/30/18 04:08 BUN 38 mg/dL (9-20) H 12/30/18 04:08 Creatinine 1.5 mg/dL (0.8-1.5) 12/30/18 04:08 Estimated GFR 58 ml/min 12/30/18 04:08 BUN/Creatinine Ratio 25 % 12/30/18 04:08 Glucose 207 mg/dL (75-100) H 12/30/18 04:08 POC Glucose 183 (70-105) H 12/29/18 18:01 Hemoglobin A1c 6.8 % (4-6) H 12/29/18 20:56 Lactic Acid 3.80 mmol/L (0.7-2.0) H* 12/29/18 15:04 Uric Acid 8.5 mg/dL (3.5-7.6) H 12/29/18 15:33 Calcium 9.0 mg/dL (8.4-10.2) 12/30/18 04:08 Magnesium 2.60 mg/dL (1.7-2.3) H 12/29/18 13:23 Iron 20 ug/dL (49-181) L 12/30/18 07:27 TIBC 311 mcg/dL (250-450) 12/30/18 07:27 Ferritin 127.9 ng/mL (13.0-400.0) 12/30/18 08:22 Total Bilirubin 0.50 mg/dL (0.1-1.2) 12/30/18 04:08 AST 17 units/L (5-40) 12/30/18 04:08 ALT 11 units/L (7-56) 12/30/18 04:08 Alkaline Phosphatase 63 units/L (35-129) 12/30/18 04:08 Lactate Dehydrogenase 167 units/L (91-180) 12/30/18 07:27 Total Creatine Kinase 43 units/L (55-170) L 12/29/18 15:33 Troponin T < 0.010 ng/mL (0.00-0.029) 12/29/18 13:23 NT-Pro-B Natriuret Pep 291.6 pg/mL (0-900) 12/29/18 13:23 Total Protein 6.3 g/dL (6.3-8.2) 12/30/18 04:08 Albumin 3.3 g/dL (3.9-5) L 12/30/18 04:08 Albumin/Globulin Ratio 1.1 % 12/30/18 04:08 Vitamin B12 328.2 pg/mL (211-911) 12/30/18 08:22 Folate 5.32 ng/mL (7.3-26.0) L 12/30/18 08:22 TSH 1.380 mlU/mL (0.270-4.200) 12/29/18 15:33 Urine Osmolality 575 Mosm/kg 12/29/18 23:40 Urine Creatinine 105.6 mg/dL (0.1-20.0) H 12/29/18 23:40 Urine Sodium 28 mmol/L 12/29/18 23:40 Blood Type A POSITIVE 12/30/18 05:10 Antibody Screen Negative 12/30/18 05:10 Crossmatch See Detail 12/30/18 05:10 Active Medications - Current Medications Current Medications: Generic Name Dose Route Start Last Admin Trade Name Freq PRN Reason Stop Dose Admin Acetaminophen 650 mg 12/29/18 20:55 Tylenol PO Q4H PRN Pain MILD(1-3)/Fever >100.5/HURTADO Hydromorphone HCl 0.5 mg 12/29/18 20:55 Dilaudid IV Q3H PRN Pain , Severe (7-10) Cefepime HCl 2 gm in 100 mls @ 200 mls/hr 12/30/18 07:34 Maxipime/Ns 2 Gm/100 Ml IV Q8HR TRISTON Protocol Vancomycin HCl 1,500 mg/ 530 mls @ 353.333 mls/hr 12/30/18 22:00 Sodium Chloride IV Q12HR TRISTON Dextrose/Sodium Chloride 1,000 mls @ 75 mls/hr 12/30/18 11:00 D5ns IV DIRECT TRISTON Ondansetron HCl 4 mg 12/29/18 20:55 12/29/18 21:09 Zofran IV 4 mg Q8H PRN Administration Nausea And Vomiting Oxycodone/Acetaminophen 1 tab 12/29/18 20:55 Percocet 5/325 PO Q6H PRN Pain, Moderate (4-6) Sodium Chloride 10 ml 12/29/18 22:00 12/30/18 11:47 Sodium Chloride Flush Syringe 10 Ml IV 10 ml BID TRISTON Administration Sodium Chloride 10 ml 12/29/18 20:55 12/30/18 11:47 Sodium Chloride Flush Syringe 10 Ml IV 10 ml PRN PRN Administration LINE FLUSH
[2018-12-30 12:23] LABS: Bilirubin,Urine NEG (Negative); Blood,Urine NEG (Negative); Color,Urine Yellow (Yellow); Mucus,Urine FEW /HPF; Protein,Urine <15 mg/dL mg/dL (Negative); Urobilinogen,Urine < 2.0 mg/dL (<2.0)
--- NOTE | 2018-12-30 12:44 | Consultation ---
History of Present Illness - Reason for Consult Consult date: 12/30/18 leukocytosis Requesting physician: LIV JACKSON - History of Present Illness 57 y/o male with of left tibial plataeu fracture sustained in [place], [place] in December 2017 s/p external fixator then underwent ORIF and removal of external fixator on 01/09/[address] Pringle - Ortho at [facility]. During that admission a CT shows marked comminuted intra-articular fracture of prox left tibia. he reports he felt sick with "diarrhea, malaise by 12/19/2018. He said diarrhea was liquid, 3-4 x a day and resolved after 4 days. He went to be seen at [facility] ED found to have a mild UTI on 12/19/2018 given bactrim for 10 days. His internal fixator hardware was removed on 12/24/2018 and he was sent on keflex for 6 days. His surgical wound has been bleeding soaking the surgical dressing but he denies fever, chills, surgical site pain. he has noted calf edema.. He is to see his ortho provider in a week to remove april. He takes aspirin. He came to the ED on 12/29/2018 due to 3-day history of progressive SOB, ALATORRE and malaise. In the ED, temp 98.4, HR 120, R 16, BP 168/80. WBC 34.5. Hg 7.7 --> 6.1.Plat 599. Na 128. Creat 1.5. Lactate 3.4. UA negative. Blood culture 12/29/2018 no growth today. ID consulted due to worsening leukocytosis. Review of Systems: General: no fever, chills, no malaise Cutaneous: no rash, pruritus Head: no headaches or injury Eyes: no changes in vision, eye pain, double vision Ears: no ear pain, ear discharge, ringing or hearing loss Nose: no runny nose, no stuffiness Mouth & throat: no bleeding gums, no horseness, no dental problems, or swollen glands Neck: no pain, node enlargement/lumps, tyroid enlargement or tenderness Respiratory: + SOB, no cough, no ALATORRE, wheezing, sputum, hemoptysis, pleuritic chest pain Cardiovascular: no chest pain, leg edema, cyanosis, ALATORRE, orthopnea Musculoskeletal: + left calf edema Gastrointestinal: no nausea, no vomiting, no hematemesis, diarrhea, constipation, melena, bright red blood in stools, fecal incontinence, jaundice Genitourinary/Reproductive: no frequent urination, dysuria, hematuria, incontinence Neurogical: no seizures, no headaches, no weakness, no paresthesias, no loss of speech or vision; no memory loss, no vertigo, no tremors, no numbness Psychiatric: stable mood; no excessive anxiety, sadness or moodiness Medications and Allergies Allergies Allergy/AdvReac Type Severity Reaction Status Date / Time No Known Allergies Allergy Unverified 12/29/18 14:01 Home Medications Medication Instructions Recorded Confirmed Last Taken Type Aspirin EC 81 mg PO BID 12/29/18 12/29/18 Unknown History Cephalexin 500 mg PO Q6HR 12/29/18 12/29/18 Unknown History Ondansetron 4 mg PO Q8HR PRN 12/29/18 12/29/18 Unknown History Sulfamethoxazole/Trimethoprim 800 mg PO BID 12/29/18 12/29/18 Unknown History oxyCODONE /ACETAMINOPHEN 5 mg PO PRN PRN 12/29/18 12/29/18 Unknown History Active Meds: Active Medications Acetaminophen (Tylenol) 650 mg PO Q4H PRN PRN Reason: Pain MILD(1-3)/Fever >100.5/HURTADO Hydromorphone HCl (Dilaudid) 0.5 mg IV Q3H PRN PRN Reason: Pain , Severe (7-10) Cefepime HCl (Maxipime/Ns 2 Gm/100 Ml) 2 gm in 100 mls @ 200 mls/hr IV Q8HR TRISTON; Protocol Vancomycin HCl 1,500 mg/ (Sodium Chloride) 530 mls @ 353.333 mls/hr IV Q12HR TRISTON Dextrose/Sodium Chloride (D5ns) 1,000 mls @ 75 mls/hr IV DIRECT TRISTON Ondansetron HCl (Zofran) 4 mg IV Q8H PRN PRN Reason: Nausea And Vomiting Last Admin: 12/29/18 21:09 Dose: 4 mg Documented by: Oxycodone/Acetaminophen (Percocet 5/325) 1 tab PO Q6H PRN PRN Reason: Pain, Moderate (4-6) Sodium Chloride (Sodium Chloride Flush Syringe 10 Ml) 10 ml IV BID TRISTON Last Admin: 12/30/18 11:47 Dose: 10 ml Documented by: Sodium Chloride (Sodium Chloride Flush Syringe 10 Ml) 10 ml IV PRN PRN PRN Reason: LINE FLUSH Last Admin: 12/30/18 11:47 Dose: 10 ml Documented by: Physical Examination - Physical Exam Narrative exam: General appearance: Alert in NAD Eyes: anicteric sclerae, moist conjunctivae; no lid-lag; PERRLA HENT: Atraumatic; oropharynx clear with moist mucous membranes and no mucosal ulcerations/no oral thrush; normal hard and soft palate. Lungs: CTA, with normal respiratory effort and no intercostal retractions CV: RRR no murmur Abdomen: Soft, non-tender Extremities: +left calf with edema, there are 2 surgical wound with april with old blood soaking the dressings, inner surgical wound with bloody drainage thick Skin: No rash. Psych: Appropriate affect, alert and oriented to person, place and time. Neuro: alert and oriented x 3. Moving all extermities - Constitutional Vitals: Vital Signs Temp Pulse Resp BP Pulse Ox 97.7 F 90 19 121/79 100 12/30/18 12:07 12/30/18 12:30 12/30/18 12:30 12/30/18 12:30 12/30/18 12:30 Temperature -Last 24 Hours Temperature 97.7 F Temperature 97.7 F Temperature 98.2 F Temperature 97.4 F Temperature 98.8 F Temperature 99 F Temperature 99 F Temperature 98.4 F Temperature 98.4 F Results - Labs CBC & Chem 7: 12/30/18 04:08 12/30/18 04:08 Labs: Abnormal lab results 12/29/18 12/29/18 12/29/18 Range/Units 13:23 13:23 13:23 WBC 34.5 H (4.5-11.0) K/mm3 RBC 2.91 L (3.65-5.03) M/mm3 Hgb 7.7 L (11.8-15.2) gm/dl Hct 24.3 L (35.5-45.6) % MCH 26 L (28-32) pg RDW 17.6 H (13.2-15.2) % Plt Count 599 H (140-440) K/mm3 Seg Neuts % (Manual) 78.5 H (40.0-70.0) % Lymphocytes % (Manual) (13.4-35.0) % Nucleated RBC % 1.5 H (0.0-0.9) % Seg Neutrophils # Man 27.1 H (1.8-7.7) K/mm3 Monocytes # (Manual) 1.0 H (0.0-0.8) K/mm3 INR 1.17 H (0.87-1.13) APTT (24.2-36.6) Sec. D-Dimer 493.25 H (0-234) ng/mlDDU Heparin Anti-Xa Level (0.3-0.7) U.I./ml Sodium 128 L (137-145) mmol/L Potassium 5.8 H (3.6-5.0) mmol/L Chloride 88.5 L (98-107) mmol/L BUN 41 H (9-20) mg/dL Glucose 276 H (75-100) mg/dL POC Glucose (70-105) Hemoglobin A1c (4-6) % Lactic Acid (0.7-2.0) mmol/L Uric Acid (3.5-7.6) mg/dL Magnesium 2.60 H (1.7-2.3) mg/dL Iron (49-181) ug/dL Total Creatine Kinase (55-170) units/L Albumin 3.7 L (3.9-5) g/dL Folate (7.3-26.0) ng/mL Urine Creatinine (0.1-20.0) mg/dL Crossmatch 12/29/18 12/29/18 12/29/18 Range/Units 14:55 15:04 15:04 WBC (4.5-11.0) K/mm3 RBC (3.65-5.03) M/mm3 Hgb (11.8-15.2) gm/dl Hct (35.5-45.6) % MCH (28-32) pg RDW (13.2-15.2) % Plt Count (140-440) K/mm3 Seg Neuts % (Manual) (40.0-70.0) % Lymphocytes % (Manual) (13.4-35.0) % Nucleated RBC % (0.0-0.9) % Seg Neutrophils # Man (1.8-7.7) K/mm3 Monocytes # (Manual) (0.0-0.8) K/mm3 INR 1.20 H (0.87-1.13) APTT (24.2-36.6) Sec. D-Dimer (0-234) ng/mlDDU Heparin Anti-Xa Level (0.3-0.7) U.I./ml Sodium (137-145) mmol/L Potassium (3.6-5.0) mmol/L Chloride (98-107) mmol/L BUN (9-20) mg/dL Glucose (75-100) mg/dL POC Glucose (70-105) Hemoglobin A1c (4-6) % Lactic Acid 3.40 H* 3.80 H* (0.7-2.0) mmol/L Uric Acid (3.5-7.6) mg/dL Magnesium (1.7-2.3) mg/dL Iron (49-181) ug/dL Total Creatine Kinase (55-170) units/L Albumin (3.9-5) g/dL Folate (7.3-26.0) ng/mL Urine Creatinine (0.1-20.0) mg/dL Crossmatch 12/29/18 12/29/18 12/29/18 Range/Units 15:04 15:33 15:33 WBC (4.5-11.0) K/mm3 RBC (3.65-5.03) M/mm3 Hgb (11.8-15.2) gm/dl Hct (35.5-45.6) % MCH (28-32) pg RDW (13.2-15.2) % Plt Count (140-440) K/mm3 Seg Neuts % (Manual) (40.0-70.0) % Lymphocytes % (Manual) (13.4-35.0) % Nucleated RBC % (0.0-0.9) % Seg Neutrophils # Man (1.8-7.7) K/mm3 Monocytes # (Manual) (0.0-0.8) K/mm3 INR (0.87-1.13) APTT 20.6 L (24.2-36.6) Sec. D-Dimer (0-234) ng/mlDDU Heparin Anti-Xa Level (0.3-0.7) U.I./ml Sodium (137-145) mmol/L Potassium (3.6-5.0) mmol/L Chloride (98-107) mmol/L BUN (9-20) mg/dL Glucose (75-100) mg/dL POC Glucose (70-105) Hemoglobin A1c (4-6) % Lactic Acid (0.7-2.0) mmol/L Uric Acid 8.5 H (3.5-7.6) mg/dL Magnesium (1.7-2.3) mg/dL Iron (49-181) ug/dL Total Creatine Kinase 43 L (55-170) units/L Albumin (3.9-5) g/dL Folate (7.3-26.0) ng/mL Urine Creatinine (0.1-20.0) mg/dL Crossmatch 12/29/18 12/29/18 12/29/18 Range/Units 15:50 16:04 18:01 WBC (4.5-11.0) K/mm3 RBC (3.65-5.03) M/mm3 Hgb (11.8-15.2) gm/dl Hct (35.5-45.6) % MCH (28-32) pg RDW (13.2-15.2) % Plt Count (140-440) K/mm3 Seg Neuts % (Manual) (40.0-70.0) % Lymphocytes % (Manual) (13.4-35.0) % Nucleated RBC % (0.0-0.9) % Seg Neutrophils # Man (1.8-7.7) K/mm3 Monocytes # (Manual) (0.0-0.8) K/mm3 INR (0.87-1.13) APTT (24.2-36.6) Sec. D-Dimer (0-234) ng/mlDDU Heparin Anti-Xa Level < 0.10 L (0.3-0.7) U.I./ml Sodium (137-145) mmol/L Potassium (3.6-5.0) mmol/L Chloride (98-107) mmol/L BUN (9-20) mg/dL Glucose (75-100) mg/dL POC Glucose 258 H 183 H (70-105) Hemoglobin A1c (4-6) % Lactic Acid (0.7-2.0) mmol/L Uric Acid (3.5-7.6) mg/dL Magnesium (1.7-2.3) mg/dL Iron (49-181) ug/dL Total Creatine Kinase (55-170) units/L Albumin (3.9-5) g/dL Folate (7.3-26.0) ng/mL Urine Creatinine (0.1-20.0) mg/dL Crossmatch 12/29/18 12/29/18 12/29/18 Range/Units 20:56 21:09 22:26 WBC (4.5-11.0) K/mm3 RBC (3.65-5.03) M/mm3 Hgb (11.8-15.2) gm/dl Hct (35.5-45.6) % MCH (28-32) pg RDW (13.2-15.2) % Plt Count (140-440) K/mm3 Seg Neuts % (Manual) (40.0-70.0) % Lymphocytes % (Manual) (13.4-35.0) % Nucleated RBC % (0.0-0.9) % Seg Neutrophils # Man (1.8-7.7) K/mm3 Monocytes # (Manual) (0.0-0.8) K/mm3 INR (0.87-1.13) APTT (24.2-36.6) Sec. D-Dimer (0-234) ng/mlDDU Heparin Anti-Xa Level 0.98 H (0.3-0.7) U.I./ml Sodium 128 L (137-145) mmol/L Potassium 6.0 H (3.6-5.0) mmol/L Chloride 92.3 L (98-107) mmol/L BUN 40 H (9-20) mg/dL Glucose 198 H (75-100) mg/dL POC Glucose (70-105) Hemoglobin A1c 6.8 H (4-6) % Lactic Acid (0.7-2.0) mmol/L Uric Acid (3.5-7.6) mg/dL Magnesium (1.7-2.3) mg/dL Iron (49-181) ug/dL Total Creatine Kinase (55-170) units/L Albumin (3.9-5) g/dL Folate (7.3-26.0) ng/mL Urine Creatinine (0.1-20.0) mg/dL Crossmatch 12/29/18 12/29/18 12/30/18 Range/Units 23:39 23:40 04:08 WBC 26.4 H (4.5-11.0) K/mm3 RBC 2.29 L (3.65-5.03) M/mm3 Hgb 6.1 L (11.8-15.2) gm/dl Hct 19.3 L* (35.5-45.6) % MCH 27 L (28-32) pg RDW 17.6 H (13.2-15.2) % Plt Count 447 H (140-440) K/mm3 Seg Neuts % (Manual) 85.0 H (40.0-70.0) % Lymphocytes % (Manual) 12.0 L (13.4-35.0) % Nucleated RBC % 4.0 H (0.0-0.9) % Seg Neutrophils # Man 22.4 H (1.8-7.7) K/mm3 Monocytes # (Manual) (0.0-0.8) K/mm3 INR (0.87-1.13) APTT (24.2-36.6) Sec. D-Dimer (0-234) ng/mlDDU Heparin Anti-Xa Level (0.3-0.7) U.I./ml Sodium (137-145) mmol/L Potassium 5.6 H (3.6-5.0) mmol/L Chloride (98-107) mmol/L BUN (9-20) mg/dL Glucose (75-100) mg/dL POC Glucose (70-105) Hemoglobin A1c (4-6) % Lactic Acid (0.7-2.0) mmol/L Uric Acid (3.5-7.6) mg/dL Magnesium (1.7-2.3) mg/dL Iron (49-181) ug/dL Total Creatine Kinase (55-170) units/L Albumin (3.9-5) g/dL Folate (7.3-26.0) ng/mL Urine Creatinine 105.6 H (0.1-20.0) mg/dL Crossmatch 12/30/18 12/30/18 12/30/18 Range/Units 04:08 05:10 07:27 WBC (4.5-11.0) K/mm3 RBC (3.65-5.03) M/mm3 Hgb (11.8-15.2) gm/dl Hct (35.5-45.6) % MCH (28-32) pg RDW (13.2-15.2) % Plt Count (140-440) K/mm3 Seg Neuts % (Manual) (40.0-70.0) % Lymphocytes % (Manual) (13.4-35.0) % Nucleated RBC % (0.0-0.9) % Seg Neutrophils # Man (1.8-7.7) K/mm3 Monocytes # (Manual) (0.0-0.8) K/mm3 INR (0.87-1.13) APTT (24.2-36.6) Sec. D-Dimer (0-234) ng/mlDDU Heparin Anti-Xa Level (0.3-0.7) U.I./ml Sodium 130 L (137-145) mmol/L Potassium 5.3 H (3.6-5.0) mmol/L Chloride 93.5 L (98-107) mmol/L BUN 38 H (9-20) mg/dL Glucose 207 H (75-100) mg/dL POC Glucose (70-105) Hemoglobin A1c (4-6) % Lactic Acid (0.7-2.0) mmol/L Uric Acid (3.5-7.6) mg/dL Magnesium (1.7-2.3) mg/dL Iron 20 L (49-181) ug/dL Total Creatine Kinase (55-170) units/L Albumin 3.3 L (3.9-5) g/dL Folate (7.3-26.0) ng/mL Urine Creatinine (0.1-20.0) mg/dL Crossmatch See Detail 12/30/18 Range/Units 08:22 WBC (4.5-11.0) K/mm3 RBC (3.65-5.03) M/mm3 Hgb (11.8-15.2) gm/dl Hct (35.5-45.6) % MCH (28-32) pg RDW (13.2-15.2) % Plt Count (140-440) K/mm3 Seg Neuts % (Manual) (40.0-70.0) % Lymphocytes % (Manual) (13.4-35.0) % Nucleated RBC % (0.0-0.9) % Seg Neutrophils # Man (1.8-7.7) K/mm3 Monocytes # (Manual) (0.0-0.8) K/mm3 INR (0.87-1.13) APTT (24.2-36.6) Sec. D-Dimer (0-234) ng/mlDDU Heparin Anti-Xa Level (0.3-0.7) U.I./ml Sodium (137-145) mmol/L Potassium (3.6-5.0) mmol/L Chloride (98-107) mmol/L BUN (9-20) mg/dL Glucose (75-100) mg/dL POC Glucose (70-105) Hemoglobin A1c (4-6) % Lactic Acid (0.7-2.0) mmol/L Uric Acid (3.5-7.6) mg/dL Magnesium (1.7-2.3) mg/dL Iron (49-181) ug/dL Total Creatine Kinase (55-170) units/L Albumin (3.9-5) g/dL Folate 5.32 L (7.3-26.0) ng/mL Urine Creatinine (0.1-20.0) mg/dL Crossmatch Assessment and Plan Cultures: Blood culture 12/29/2018 no growth today. Assessment: 57 y/o male with of left tibial plataeu fracture s/p internal fixator hardware was removed on 12/24/[address] Pringle - [facility] at [facility], he had also recent diarrhea and a UTI treated with bactrim, admitted on 12/29/2018 with 3-day history of progressive SOB, ALATORRE and malaise: 1) SIRS: present on admission with tachycardia, leukocytosis, elevated lactate; noted severe anemia and left calf surgical wound with bleeding/oozing since surgery. DDx ? surgical site hematoma ?infected hematoma ? C diff (recent diarrhea after antibiotics-diarrhea is now resolved) ?surgical site cellulitis ?osteomyelitis. Lactate 3.4. UA negative. Blood culture 12/29/2018 no growth today. 2) History of left tibial plateau fracture sustained in [place], [place] in December 2017 s/p external fixator then underwent ORIF and removal of external fixator on 01/09/[address] Pringle - [facility]ette at [facility]. During that admission a CT shows marked comminuted intra-articular fracture of prox left tibia. His internal fixator hardware was removed on 12/24/2018 and he was sent on keflex for 6 days. His surgical wound has been bleeding soaking the surgical dressing. He takes aspirin. 3) Recent mild UTI on 12/19/2018 given bactrim for 10 days. 4) Thrombocytosis - Plat 599. Likely reactive 5) Hyponatremia: Na 128. 6) FARHAD Creat 1.5. ID consulted due to worsening leukocytosis. Recommendations: follow up blood cultures obtain procalcitonin obtain CT left calf eval for hematoma and CT abdomen w contrast eval for colitis - discussed with Dr Childress continue cefepime and vancomycin for now add metronidazole until colitis is r/o surgical wound is not draining currently no diarrhea currently so cannot send specimen for C diff Will follow. Sachi Dill MD Infectious Diseases [employer] [facility] M [phone] O [phone]
[2018-12-30 12:59] LABS: RBC,Urine < 1.0 /HPF (0.0-6.0)
[2018-12-30] MEDS ORDERED: VANCOMYCIN 1,500 MG in SODIUM CHLORIDE 0.9% 500 ML 500 ML IV SCH (22:00)
[2018-12-31] MEDS: D5W/0.9% NACL 1,000 ML IV SCH (00:18)
[2018-12-31] MEDS: metroNIDAZOLE/NS 500 MG/100 ML 500 MG/100 ML BAG IV SCH ×4 (00:23→17:11)
[2018-12-31 04:38] LABS: Hematocrit 25.4 % (35.5-45.6); Hemoglobin 8.3 gm/dl (11.8-15.2); Mean Corpuscular HGB Conc 33 % (32-34); Mean Corpuscular Volume 86 fl (84-94); Platelet Count 406 K/mm3 (140-440); Red Blood Count 2.97 M/mm3 (3.65-5.03)
[2018-12-31 05:08] LABS: BUN/Creatinine Ratio 22; Blood Urea Nitrogen 26 mg/dL (9-20); Calcium 8.8 mg/dL (8.4-10.2); Hemolysis Index 0
[2018-12-31 05:12] LABS: Alanine Aminotransferase 11 units/L (7-56); Albumin 3.3 g/dL (3.9-5); BUN/Creatinine Ratio 22; Blood Urea Nitrogen 26 mg/dL (9-20); Calcium 8.8 mg/dL (8.4-10.2); Hemolysis Index 0
[2018-12-31] MEDS: CEFEPIME/NS 2 GM/100 ML 2 GM/100 ML BAG IV SCH ×3 (05:25→21:10)
[2018-12-31] MEDS: VANCOMYCIN 1,500 MG in SODIUM CHLORIDE 0.9% 500 ML 500 ML IV SCH ×2 (05:38→17:15)
[2018-12-31 06:28] LABS: Basophils % (Manual) 0 % (0.0-1.8); Eosinophils % (Manual) 0 % (0.0-4.3); Total Cells Counted 100
[2018-12-31 06:30] LABS: Anisocytosis 1+; Macrocytosis Few; Poikilocytosis 1+
[2018-12-31 06:31] LABS: Hypochromasia Few; Large Platelets 1+; Platelet Estimate Consistent w Auto
--- NOTE | 2018-12-31 07:44 | Hem/Onc Progress Note ---
Assessment and Plan 1. Normocytic anemia, likely secondary to bleed. LDH is not elevated. Serum iron is low, low folic acid. Peripheral smear does not mention spherocytosis. Based on clinical scenario, this is more of a bleeding. A transfusion support has been given. I will look into iron support. 2. Orthopedic fracture related issues. Orthopedics is following the patient. 3. Leukocytosis. Infectious Disease saw the patient. 4. Radiology, CT scan mentions possible hematoma. 5. History of diarrhea. 6. History of infection. 7. Thrombocytosis, likely reactive. 8. Renal impairment. 9. I will follow the patient during inpatient stay and then clinic setting. IV iron trial an option - Patient Problems (1) Anemia Status: Acute Qualifiers: Anemia type: iron deficiency Iron deficiency anemia type: chronic blood loss Qualified Code(s): D50.0 - Iron deficiency anemia secondary to blood loss (chronic) Subjective Date of service: 12/31/18 Principal diagnosis: anemia Interval history: wound dressing change by ortho - as per pt s/p prbc Objective - Exam Narrative Exam: Pain - leg General appearance - comfortable Performance status limited self care Eyes - no icterus, ENT - no bleeding LNs cervical not palpable Neck - no LN Respiratory Normal Breath sounds - CTA CVS S1 S2 + Extremities no calf tenderness General GI Soft Rectal deferred male - deferred Skin warm Musculoskeletal moves extremities - bandage + Neurologically awake - oriented - Constitutional Vitals: Last Vital Signs Temp 97.4 F L 12/31/18 04:00 Pulse 78 12/31/18 07:30 Resp 17 12/31/18 07:30 BP 118/46 12/31/18 07:30 Pulse Ox 99 12/31/18 07:30 - Labs Lab Results: Laboratory Results - last 24 hr 12/30/18 12/30/18 12/30/18 04:08 05:10 07:27 WBC 26.4 H RBC 2.29 L Hgb 6.1 L Hct 19.3 L* MCV 84 MCH 27 L MCHC 32 RDW 17.6 H Plt Count 447 H Add Manual Diff Complete Total Counted 100 Seg Neuts % (Manual) 85.0 H Band Neutrophils % 0 Lymphocytes % (Manual) 12.0 L Reactive Lymphs % (Man) 0 Monocytes % (Manual) 3.0 Eosinophils % (Manual) 0 Basophils % (Manual) 0 Metamyelocytes % 0 Myelocytes % 0 Promyelocytes % 0 Blast Cells % 0 Nucleated RBC % 4.0 H Seg Neutrophils # Man 22.4 H Band Neutrophils # 0.0 Lymphocytes # (Manual) 3.2 Abs React Lymphs (Man) 0.0 Monocytes # (Manual) 0.8 Eosinophils # (Manual) 0.0 Basophils # (Manual) 0.0 Metamyelocytes # 0.0 Myelocytes # 0.0 Promyelocytes # 0.0 Blast Cells # 0.0 Pathologist Review WBC Morphology Not Reportable Hypersegmented Neuts Hyposegmented Neuts Hypogranular Neuts Smudge Cells Toxic Granulation Toxic Vacuolation Dohle Bodies Pelger-Huet Anomaly Swapna Rods Platelet Estimate Consistent w auto Clumped Platelets Plt Clumps, EDTA Large Platelets Giant Platelets Platelet Satelliting Plt Morphology Comment RBC Morphology Dimorphic RBCs Polychromasia 1+ Hypochromasia 1+ Poikilocytosis Anisocytosis 1+ Microcytosis Macrocytosis Spherocytes Pappenheimer Bodies Sickle Cells Target Cells 1+ Tear Drop Cells Ovalocytes Helmet Cells Iglesias-Uvalde Bodies Daniel Rings Leif Cells Bite Cells Crenated Cell Elliptocytes Acanthocytes (Spur) Rouleaux Hemoglobin C Crystals Schistocytes Malaria parasites Donnell Bodies Hem Pathologist Commnt Sent to pathology Sodium Potassium Chloride Carbon Dioxide Anion Gap BUN Creatinine Estimated GFR BUN/Creatinine Ratio Glucose POC Glucose Calcium Phosphorus Iron TIBC Ferritin Total Bilirubin AST ALT Alkaline Phosphatase Lactate Dehydrogenase 167 Total Protein Albumin Albumin/Globulin Ratio Vitamin B12 Folate Urine Color Urine Turbidity Urine pH Ur Specific [place] Urine Protein Urine Glucose (UA) Urine Ketones Urine Blood Urine Nitrite Urine Bilirubin Urine Urobilinogen Ur Leukocyte Esterase Urine WBC (Auto) Urine RBC (Auto) Urine Mucus Blood Type A POSITIVE Antibody Screen Negative Crossmatch See Detail 12/30/18 12/30/18 12/30/18 07:27 08:22 08:22 WBC RBC Hgb Hct MCV MCH MCHC RDW Plt Count Add Manual Diff Total Counted Seg Neuts % (Manual) Band Neutrophils % Lymphocytes % (Manual) Reactive Lymphs % (Man) Monocytes % (Manual) Eosinophils % (Manual) Basophils % (Manual) Metamyelocytes % Myelocytes % Promyelocytes % Blast Cells % Nucleated RBC % Seg Neutrophils # Man Band Neutrophils # Lymphocytes # (Manual) Abs React Lymphs (Man) Monocytes # (Manual) Eosinophils # (Manual) Basophils # (Manual) Metamyelocytes # Myelocytes # Promyelocytes # Blast Cells # Pathologist Review WBC Morphology Hypersegmented Neuts Hyposegmented Neuts Hypogranular Neuts Smudge Cells Toxic Granulation Toxic Vacuolation Dohle Bodies Pelger-Huet Anomaly Swapna Rods Platelet Estimate Clumped Platelets Plt Clumps, EDTA Large Platelets Giant Platelets Platelet Satelliting Plt Morphology Comment RBC Morphology Dimorphic RBCs Polychromasia Hypochromasia Poikilocytosis Anisocytosis Microcytosis Macrocytosis Spherocytes Pappenheimer Bodies Sickle Cells Target Cells Tear Drop Cells Ovalocytes Helmet Cells Iglesias-[place] Bodies Daniel Rings [place] Cells Bite Cells Crenated Cell Elliptocytes Acanthocytes (Spur) Rouleaux Hemoglobin C Crystals Schistocytes Malaria parasites Donnell Bodies Hem Pathologist Commnt Sodium Potassium Chloride Carbon Dioxide Anion Gap BUN Creatinine Estimated GFR BUN/Creatinine Ratio Glucose POC Glucose Calcium Phosphorus Iron 20 L TIBC 311 Ferritin 127.9 Total Bilirubin AST ALT Alkaline Phosphatase Lactate Dehydrogenase Total Protein Albumin Albumin/Globulin Ratio Vitamin B12 328.2 Folate Urine Color Urine Turbidity Urine pH Ur Specific [place] Urine Protein Urine Glucose (UA) Urine Ketones Urine Blood Urine Nitrite Urine Bilirubin Urine Urobilinogen Ur Leukocyte Esterase Urine WBC (Auto) Urine RBC (Auto) Urine Mucus Blood Type Antibody Screen Crossmatch 12/30/18 12/30/18 12/30/18 08:22 11:58 15:02 WBC RBC Hgb Hct MCV MCH MCHC RDW Plt Count Add Manual Diff Total Counted Seg Neuts % (Manual) Band Neutrophils % Lymphocytes % (Manual) Reactive Lymphs % (Man) Monocytes % (Manual) Eosinophils % (Manual) Basophils % (Manual) Metamyelocytes % Myelocytes % Promyelocytes % Blast Cells % Nucleated RBC % Seg Neutrophils # Man Band Neutrophils # Lymphocytes # (Manual) Abs React Lymphs (Man) Monocytes # (Manual) Eosinophils # (Manual) Basophils # (Manual) Metamyelocytes # Myelocytes # Promyelocytes # Blast Cells # Pathologist Review WBC Morphology Hypersegmented Neuts Hyposegmented Neuts Hypogranular Neuts Smudge Cells Toxic Granulation Toxic Vacuolation Dohle Bodies Pelger-Huet Anomaly Swapna Rods Platelet Estimate Clumped Platelets Plt Clumps, EDTA Large Platelets Giant Platelets Platelet Satelliting Plt Morphology Comment RBC Morphology Dimorphic RBCs Polychromasia Hypochromasia Poikilocytosis Anisocytosis Microcytosis Macrocytosis Spherocytes Pappenheimer Bodies Sickle Cells Target Cells Tear Drop Cells Ovalocytes Helmet Cells Iglesias-[place] Bodies Daniel Rings Leif Cells Bite Cells Crenated Cell Elliptocytes Acanthocytes (Spur) Rouleaux Hemoglobin C Crystals Schistocytes Malaria parasites Donnell Bodies Hem Pathologist Commnt Sodium Potassium Chloride Carbon Dioxide Anion Gap BUN Creatinine Estimated GFR BUN/Creatinine Ratio Glucose POC Glucose 180 H Calcium Phosphorus Iron TIBC Ferritin Total Bilirubin AST ALT Alkaline Phosphatase Lactate Dehydrogenase Total Protein Albumin Albumin/Globulin Ratio Vitamin B12 Folate 5.32 L Urine Color Yellow Urine Turbidity Clear Urine pH 5.0 Ur Specific [place] 1.015 Urine Protein <15 mg/dl Urine Glucose (UA) Neg Urine Ketones Neg Urine Blood Neg Urine Nitrite Neg Urine Bilirubin Neg Urine Urobilinogen < 2.0 Ur Leukocyte Esterase Neg Urine WBC (Auto) 1.0 Urine RBC (Auto) < 1.0 Urine Mucus Few Blood Type Antibody Screen Crossmatch 12/30/18 12/31/18 12/31/18 21:08 04:05 04:05 WBC 16.2 H RBC 2.97 L Hgb 8.3 L Hct 25.4 L D MCV 86 MCH 28 MCHC 33 RDW 17.0 H Plt Count 406 Add Manual Diff Complete Total Counted 100 Seg Neuts % (Manual) 86.0 H Band Neutrophils % 0 Lymphocytes % (Manual) 9.0 L Reactive Lymphs % (Man) 0 Monocytes % (Manual) 3.0 Eosinophils % (Manual) 0 Basophils % (Manual) 0 Metamyelocytes % 2.0 Myelocytes % 0 Promyelocytes % 0 Blast Cells % 0 Nucleated RBC % 2.0 H Seg Neutrophils # Man 13.9 H Band Neutrophils # 0.0 Lymphocytes # (Manual) 1.5 Abs React Lymphs (Man) 0.0 Monocytes # (Manual) 0.5 Eosinophils # (Manual) 0.0 Basophils # (Manual) 0.0 Metamyelocytes # 0.3 Myelocytes # 0.0 Promyelocytes # 0.0 Blast Cells # 0.0 Pathologist Review WBC Morphology Not Reportable Hypersegmented Neuts Not Reportable Hyposegmented Neuts Not Reportable Hypogranular Neuts Not Reportable Smudge Cells Not Reportable Toxic Granulation Not Reportable Toxic Vacuolation Not Reportable Dohle Bodies Not Reportable Pelger-Huet Anomaly Not Reportable Swapna Rods Not Reportable Platelet Estimate Consistent w auto Clumped Platelets Not Reportable Plt Clumps, EDTA Not Reportable Large Platelets 1+ Giant Platelets Not Reportable Platelet Satelliting Not Reportable Plt Morphology Comment Not Reportable RBC Morphology Not Reportable Dimorphic RBCs Not Reportable Polychromasia Few Hypochromasia Few Poikilocytosis 1+ Anisocytosis 1+ Microcytosis Few Macrocytosis Few Spherocytes Not Reportable Pappenheimer Bodies Not Reportable Sickle Cells Not Reportable Target Cells Not Reportable Tear Drop Cells Not Reportable Ovalocytes Not Reportable Helmet Cells Not Reportable Iglesias-Uvalde Bodies Not Reportable Daniel Rings Not Reportable [place] Cells Not Reportable Bite Cells Not Reportable Crenated Cell Not Reportable Elliptocytes Not Reportable Acanthocytes (Spur) Not Reportable Rouleaux Not Reportable Hemoglobin C Crystals Not Reportable Schistocytes Not Reportable Malaria parasites Not Reportable Donnell Bodies Not Reportable Hem Pathologist Commnt No Sodium 131 L Potassium 4.7 4.5 Chloride 95.7 L Carbon Dioxide 24 Anion Gap 16 BUN 26 H Creatinine 1.2 Estimated GFR > 60 BUN/Creatinine Ratio 22 Glucose 165 H POC Glucose Calcium 8.8 Phosphorus 3.20 Iron TIBC Ferritin Total Bilirubin AST ALT Alkaline Phosphatase Lactate Dehydrogenase Total Protein Albumin Albumin/Globulin Ratio Vitamin B12 Folate Urine Color Urine Turbidity Urine pH Ur Specific [place] Urine Protein Urine Glucose (UA) Urine Ketones Urine Blood Urine Nitrite Urine Bilirubin Urine Urobilinogen Ur Leukocyte Esterase Urine WBC (Auto) Urine RBC (Auto) Urine Mucus Blood Type Antibody Screen Crossmatch 12/31/18 04:05 WBC RBC Hgb Hct MCV MCH MCHC RDW Plt Count Add Manual Diff Total Counted Seg Neuts % (Manual) Band Neutrophils % Lymphocytes % (Manual) Reactive Lymphs % (Man) Monocytes % (Manual) Eosinophils % (Manual) Basophils % (Manual) Metamyelocytes % Myelocytes % Promyelocytes % Blast Cells % Nucleated RBC % Seg Neutrophils # Man Band Neutrophils # Lymphocytes # (Manual) Abs React Lymphs (Man) Monocytes # (Manual) Eosinophils # (Manual) Basophils # (Manual) Metamyelocytes # Myelocytes # Promyelocytes # Blast Cells # Pathologist Review WBC Morphology Hypersegmented Neuts Hyposegmented Neuts Hypogranular Neuts Smudge Cells Toxic Granulation Toxic Vacuolation Dohle Bodies Pelger-Huet Anomaly Swapna Rods Platelet Estimate Clumped Platelets Plt Clumps, EDTA Large Platelets Giant Platelets Platelet Satelliting Plt Morphology Comment RBC Morphology Dimorphic RBCs Polychromasia Hypochromasia Poikilocytosis Anisocytosis Microcytosis Macrocytosis Spherocytes Pappenheimer Bodies Sickle Cells Target Cells Tear Drop Cells Ovalocytes Helmet Cells Iglesias-[place]val[place] Bodies Daniel Rings [place] Cells Bite Cells Crenated Cell Elliptocytes Acanthocytes (Spur) Rouleaux Hemoglobin C Crystals Schistocytes Malaria parasites Donnell Bodies Hem Pathologist Commnt Sodium 131 L Potassium 4.6 Chloride 96.6 L Carbon Dioxide 23 Anion Gap 16 BUN 26 H Creatinine 1.2 Estimated GFR > 60 BUN/Creatinine Ratio 22 Glucose 164 H POC Glucose Calcium 8.8 Phosphorus Iron TIBC Ferritin Total Bilirubin 0.60 AST 13 ALT 11 Alkaline Phosphatase 66 Lactate Dehydrogenase Total Protein 6.3 Albumin 3.3 L Albumin/Globulin Ratio 1.1 Vitamin B12 Folate Urine Color Urine Turbidity Urine pH Ur Specific [place] Urine Protein Urine Glucose (UA) Urine Ketones Urine Blood Urine Nitrite Urine Bilirubin Urine Urobilinogen Ur Leukocyte Esterase Urine WBC (Auto) Urine RBC (Auto) Urine Mucus Blood Type Antibody Screen Crossmatch Medications & Allergies - Medications Allergies/Adverse Reactions: Allergies No Known Allergies Allergy (Unverified 12/29/18 14:01) Home Medications: Home Medications Medication Instructions Recorded Confirmed Last Taken Type Aspirin EC 81 mg PO BID 12/29/18 12/29/18 Unknown History Ondansetron 4 mg PO Q8HR PRN 12/29/18 12/29/18 Unknown History oxyCODONE /ACETAMINOPHEN 5 mg PO PRN PRN 12/29/18 12/29/18 Unknown History Ferrous Gluconate [Ferrous 324 mg PO DAILY #30 tablet 12/31/18 Unknown Rx Gluconate 324 MG] Folic Acid/Vit Bcomp&C/Cu/Znox 1 each PO QDAY #30 tablet 12/31/18 Unknown Rx [Folbee Plus Cz] Active Medications: Generic Name Dose Route Start Last Admin Trade Name Freq PRN Reason Stop Dose Admin Acetaminophen 650 mg 12/29/18 20:55 Tylenol PO Q4H PRN Pain MILD(1-3)/Fever >100.5/HURTADO Hydromorphone HCl 0.5 mg 12/29/18 20:55 Dilaudid IV Q3H PRN Pain , Severe (7-10) Cefepime HCl 2 gm in 100 mls @ 200 mls/hr 12/30/18 07:34 12/31/18 05:25 Maxipime/Ns 2 Gm/100 Ml IV 200 mls/hr Q8HR TRISTON Administration Protocol Dextrose/Sodium Chloride 1,000 mls @ 75 mls/hr 12/30/18 11:00 12/31/18 00:18 D5ns IV 75 mls/hr DIRECT TRISTON Administration Metronidazole 500 mg in 100 mls @ 100 mls/hr 12/30/18 17:00 12/31/18 00:23 Flagyl 500 Mg/100 Ml IV 100 mls/hr Q8H TRISTON Administration Protocol Vancomycin HCl 1,500 mg/ 530 mls @ 353.333 mls/hr 12/31/18 06:00 12/31/18 05:38 Sodium Chloride IV 353.333 mls/hr Q12H TRISTON Administration Ondansetron HCl 4 mg 12/29/18 20:55 12/29/18 21:09 Zofran IV 4 mg Q8H PRN Administration Nausea And Vomiting Oxycodone/Acetaminophen 1 tab 12/29/18 20:55 Percocet 5/325 PO Q6H PRN Pain, Moderate (4-6) Sodium Chloride 10 ml 12/29/18 22:00 12/30/18 22:36 Sodium Chloride Flush Syringe 10 Ml IV 10 ml BID TRISTON Administration Sodium Chloride 10 ml 12/29/18 20:55 12/30/18 11:47 Sodium Chloride Flush Syringe 10 Ml IV 10 ml PRN PRN Administration LINE FLUSH Vitamin B Complex/Folic Acid 1 each 12/31/18 10:00 Folbee Plus Cz PO QDAY TRISTON
--- NOTE | 2018-12-31 08:52 | Discharge Summary ---
Providers - Providers Date of Admission: 12/29/18 15:34 Attending physician: SWAPNIL HENDRIX MD 12/29/18 15:23 Consult to Physician [CONS] Urgent Comment: Consulting Provider: INGRID FARNSWORTH Physician Instructions: Reason For Exam: danis hyperkalemia 12/29/18 23:08 Consult to Physician [CONS] Routine Comment: Consulting Provider: REBA ASHER Physician Instructions: Reason For Exam: sepsis versus leukemia 12/30/18 07:06 Consult to Physician [CONS] Routine Comment: Consulting Provider: BREANNA THOMASON Physician Instructions: Reason For Exam: Leukocytosis Primary care physician: [employer] Hospitalization Condition: Serious Hospital course: 58-year-old man who presented to the hospital complaining of shortness of breath. Patient admitted to recently having orthopedic procedure for tib-fib fracture, denied bloody stool melena or hematemesis Past medical history; denies any chronic medical conditions, states that his father had blood clots but denies having them personally Chest x-ray; no acute findings Lower extremity Dopplers, negative for DVT VQ scan, low probability for PE CT abdomen and pelvis shows no acute findings Renal ultrasound is negative CT lower extremity shows fluid collection/hematoma from recent surgery which is small in nature, expected outcome Labs, revealed anemia, normocytic in nature Hyponatremia, hyperkalemia, mild rise in creatinine, max creatinine 1.5, now 1.2 Diagnosis Anemia, expected outcome after orthopedic surgery Acute kidney injury due to vasomotor nephropathy and ATN Hyperkalemia SIRS, no suspicion of infection Plan Status post blood transfusion, hemoglobin improved Hyperkalemia was medically treated -Creatinine now improved. -Patient apparently had diarrhea a week ago which has now resolved, he has no complaints at this time of intra-abdominal process, no fever, no suspicion for infection, ID input appreciated -There was a small hematoma/fluid collection at recent orthopedic surgery site, report was given to patient, he is to follow-up with his orthopedic surgeon at [place]. As infection of the hematoma could not be excluded. Patient was given a short course of antibiotics per ID recommendation DVT prophylaxis with SCDs and early ambulation given anemia Disposition: TO HOME OR SELFCARE Time spent for discharge: 33 mins Core Measure Documentation - Palliative Care Palliative Care/ Comfort Measures: Not Applicable - Core Measures Any of the following diagnoses?: none Exam - Constitutional Vitals: Temp Pulse Resp BP Pulse Ox 98.3 F 81 13 119/54 100 12/31/18 08:00 12/31/18 08:16 12/31/18 08:16 12/31/18 08:16 12/31/18 08:16 General appearance: Present: no acute distress, well-nourished - EENT Eyes: Present: PERRL ENT: hearing intact, clear oral mucosa - Neck Neck: Present: supple, normal ROM - Respiratory Respiratory effort: normal Respiratory: bilateral: CTA - Cardiovascular Heart Sounds: Present: S1 & S2. Absent: rub, click - Extremities Extremities: pulses symmetrical, No edema Peripheral Pulses: within normal limits - Abdominal General gastrointestinal: Present: soft, non-tender, non-distended, normal bowel sounds Male genitourinary: Present: normal - Integumentary Integumentary: Present: clear, warm, dry - Musculoskeletal Musculoskeletal: gait normal, strength equal bilaterally - Psychiatric Psychiatric: appropriate mood/affect, intact judgment & insight - Neurologic Neurologic: CNII-XII intact, moves all extremities Plan Follow up with: PRIMARY CARE, [Primary Care Provider] - 3-5 Days Prescriptions: cefUROXime [Ceftin] 500 mg PO Q12H #28 tablet Doxycycline Hyclate [Doxycycline Hyclate TAB] 100 mg PO Q12HR #14 tab Ferrous Gluconate [Ferrous Gluconate 324 MG] 324 mg PO DAILY #30 tablet Folic Acid/Vit Bcomp&C/Cu/Znox [Folbee Plus Cz] 1 each PO QDAY #30 tablet
[2018-12-31] MEDS ORDERED: FOLBEE PLUS CZ (FOLIC ACID/VIT BCOMP&C/CU/ZNOX) PO SCH (10:00)
--- NOTE | 2018-12-31 10:42 | Progress Note ---
Assessment and Plan 1. Acute kidney injury: Vasomotor FARHAD in the setting of volume depletion and sepsis. Renal function has improved. Baseline creatinine 1.2. Continue IV fluids. Monitor renal function. Avoid nephrotoxic agents. Meds dosage based on GFR. 2. FEN: Hyperkalemia, improved. Hyponatremia, monitor. Monitor lytes. 3. Anemia: S/p PRBC. 4. SOB / Respiratory distress: V/Q scan with low prob for PE. 5. Sepsis: Followed by ID. 6. New onset DM. Examination: General appearance: well-developed, well-nourished, appears stated age, not in distress EENT: ATNC, DOROTHY, mucous membranes moist, hearing intact, vision intact Neck: neck supple, trachea midline Respiratory: Clear to auscultation Heart: regular, S1S2, no murmur Gastrointestinal: normoactive bowel sounds, obese, not tender, not distended Integumentary: no rash, L leg dressing note Neurologic: no focal deficit, no asterixis, alert and oriented x3 Musculoskeletal: no edema Subjective Date of service: 12/31/18 Interval history: Patient was seen and examined at the bedside. Feeling better. Objective - Vital Signs Vital signs: Vital Signs - 12hr 12/30/18 12/30/18 12/30/18 22:46 23:00 23:16 Temperature Pulse Rate 90 Pulse Rate [ From Monitor] Respiratory 28 H Rate Blood Pressure 142/72 130/60 130/60 O2 Sat by Pulse 97 97 97 Oximetry 12/30/18 12/30/18 12/31/18 23:30 23:46 00:00 Temperature Pulse Rate 90 82 79 Pulse Rate [ 83 From Monitor] Respiratory 18 16 18 Rate Blood Pressure 130/60 130/60 144/69 O2 Sat by Pulse 95 100 97 Oximetry 12/31/18 12/31/18 12/31/18 00:02 00:16 00:30 Temperature 99.1 F Pulse Rate 82 78 Pulse Rate [ From Monitor] Respiratory 18 18 Rate Blood Pressure 144/69 144/69 O2 Sat by Pulse 97 100 Oximetry 12/31/18 12/31/18 12/31/18 00:45 01:00 01:15 Temperature Pulse Rate 78 83 78 Pulse Rate [ From Monitor] Respiratory 18 18 18 Rate Blood Pressure 144/69 139/70 139/70 O2 Sat by Pulse 99 98 99 Oximetry 12/31/18 12/31/18 12/31/18 01:31 01:45 02:01 Temperature Pulse Rate 80 82 80 Pulse Rate [ From Monitor] Respiratory 16 16 18 Rate Blood Pressure 139/70 139/70 157/74 O2 Sat by Pulse 97 97 96 Oximetry 12/31/18 12/31/18 12/31/18 02:15 02:31 02:45 Temperature Pulse Rate 81 77 79 Pulse Rate [ From Monitor] Respiratory 18 18 17 Rate Blood Pressure 157/74 157/74 157/74 O2 Sat by Pulse 98 98 99 Oximetry 12/31/18 12/31/18 12/31/18 03:00 03:15 03:30 Temperature Pulse Rate 79 82 84 Pulse Rate [ From Monitor] Respiratory 16 12 12 Rate Blood Pressure 164/82 157/74 157/74 O2 Sat by Pulse 99 98 97 Oximetry 12/31/18 12/31/18 12/31/18 03:46 04:00 04:16 Temperature 97.4 F L Pulse Rate 81 78 82 Pulse Rate [ 80 From Monitor] Respiratory 15 12 17 Rate Blood Pressure 164/82 164/82 164/82 O2 Sat by Pulse 98 100 98 Oximetry 12/31/18 12/31/18 12/31/18 04:30 04:46 05:00 Temperature Pulse Rate 85 83 83 Pulse Rate [ From Monitor] Respiratory 18 17 17 Rate Blood Pressure 164/82 164/82 131/57 O2 Sat by Pulse 98 99 99 Oximetry 12/31/18 12/31/18 12/31/18 05:16 05:30 05:46 Temperature Pulse Rate 85 83 93 H Pulse Rate [ From Monitor] Respiratory 17 16 15 Rate Blood Pressure 131/57 131/57 131/57 O2 Sat by Pulse 99 98 98 Oximetry 12/31/18 12/31/18 12/31/18 06:00 06:16 06:30 Temperature Pulse Rate 80 83 82 Pulse Rate [ From Monitor] Respiratory 8 L 15 16 Rate Blood Pressure 127/67 127/67 127/67 O2 Sat by Pulse 98 98 97 Oximetry 12/31/18 12/31/18 12/31/18 06:46 07:00 07:16 Temperature Pulse Rate 82 82 78 Pulse Rate [ From Monitor] Respiratory 17 14 13 Rate Blood Pressure 127/67 127/67 118/46 O2 Sat by Pulse 98 99 100 Oximetry 12/31/18 12/31/18 12/31/18 07:30 07:46 08:00 Temperature 98.3 F Pulse Rate 78 80 80 Pulse Rate [ 79 From Monitor] Respiratory 17 10 L 16 Rate Blood Pressure 118/46 118/46 119/54 O2 Sat by Pulse 99 98 100 Oximetry 12/31/18 08:16 Temperature Pulse Rate 81 Pulse Rate [ From Monitor] Respiratory 13 Rate Blood Pressure 119/54 O2 Sat by Pulse 100 Oximetry - Lab 12/31/18 04:05 12/31/18 04:05 Most recent lab results Calcium 8.8 mg/dL (8.4-10.2) 12/31/18 04:05 Calcium 8.8 mg/dL (8.4-10.2) 12/31/18 04:05 Phosphorus 3.20 mg/dL (2.5-4.5) 12/31/18 04:05 Magnesium 2.60 mg/dL (1.7-2.3) H 12/29/18 13:23 Urine Creatinine 105.6 mg/dL (0.1-20.0) H 12/29/18 23:40 Urine Sodium 28 mmol/L 12/29/18 23:40 Medications & Allergies - Medications Allergies/Adverse Reactions: Allergies No Known Allergies Allergy (Unverified 12/29/18 14:01) Home Medications: Home Medications Medication Instructions Recorded Confirmed Last Taken Type Aspirin EC 81 mg PO BID 12/29/18 12/29/18 Unknown History Ondansetron 4 mg PO Q8HR PRN 12/29/18 12/29/18 Unknown History oxyCODONE /ACETAMINOPHEN 5 mg PO PRN PRN 12/29/18 12/29/18 Unknown History Ferrous Gluconate [Ferrous 324 mg PO DAILY #30 tablet 12/31/18 Unknown Rx Gluconate 324 MG] Folic Acid/Vit Bcomp&C/Cu/Znox 1 each PO QDAY #30 tablet 12/31/18 Unknown Rx [Folbee Plus Cz] Active Medications: Generic Name Dose Route Start Last Admin Trade Name Freq PRN Reason Stop Dose Admin Acetaminophen 650 mg 12/29/18 20:55 Tylenol PO Q4H PRN Pain MILD(1-3)/Fever >100.5/HURTADO Hydromorphone HCl 0.5 mg 12/29/18 20:55 Dilaudid IV Q3H PRN Pain , Severe (7-10) Cefepime HCl 2 gm in 100 mls @ 200 mls/hr 12/30/18 07:34 12/31/18 05:25 Maxipime/Ns 2 Gm/100 Ml IV 200 mls/hr Q8HR TRISTON Administration Protocol Dextrose/Sodium Chloride 1,000 mls @ 75 mls/hr 12/30/18 11:00 12/31/18 00:18 D5ns IV 75 mls/hr DIRECT TRISTON Administration Metronidazole 500 mg in 100 mls @ 100 mls/hr 12/30/18 17:00 12/31/18 09:55 Flagyl 500 Mg/100 Ml IV 100 mls/hr Q8H TRISTON Administration Protocol Vancomycin HCl 1,500 mg/ 530 mls @ 353.333 mls/hr 12/31/18 06:00 12/31/18 05:38 Sodium Chloride IV 353.333 mls/hr Q12H TRISTON Administration Ondansetron HCl 4 mg 12/29/18 20:55 12/29/18 21:09 Zofran IV 4 mg Q8H PRN Administration Nausea And Vomiting Oxycodone/Acetaminophen 1 tab 12/29/18 20:55 Percocet 5/325 PO Q6H PRN Pain, Moderate (4-6) Sodium Chloride 10 ml 12/29/18 22:00 12/31/18 09:40 Sodium Chloride Flush Syringe 10 Ml IV 10 ml BID TRISTON Administration Sodium Chloride 10 ml 12/29/18 20:55 12/30/18 11:47 Sodium Chloride Flush Syringe 10 Ml IV 10 ml PRN PRN Administration LINE FLUSH Vitamin B Complex/Folic Acid 1 each 12/31/18 10:00 12/31/18 09:40 Folbee Plus Cz PO 1 each QDAY TRISTON Administration
--- NOTE | 2018-12-31 19:10 | Ultrasound Report ---
ULTRASOUND RENAL INDICATION: Acute renal failure. COMPARISON: No relevant prior imaging study available. FINDINGS: RIGHT KIDNEY: Size: 10.5 cm. Echogenicity: Normal. Cortical thickness: Normal. Stones: None. Hydronephrosis: None. Cyst or mass: None. LEFT KIDNEY: Size: 11.4 cm. Echogenicity: Normal. Cortical thickness: Normal. Stones: None. Hydronephrosis: None. Cyst or mass: None. Urinary Bladder: No significant abnormality. Free Fluid: None. Additional Findings: None. IMPRESSION: No acute sonographic abnormality of the kidneys Signer Name: Phil Maldonado MD Signed: 12/31/2018 7:06 PM Workstation Name: [id number]
--- NOTE | 2018-12-31 19:19 | Cat Scan Report ---
CT ABDOMEN AND PELVIS WITH CONTRAST INDICATION: severe leukocytosis recent diarrhea CONTRAST: 100 cc Omnipaque 300 IV COMPARISON: None available. All CT scans at this location are performed using CT dose reduction for ALARA by means of automated e xposure control. FINDINGS: Lung bases are clear. No pneumoperitoneum is seen. Broad-based midline abdominal wall laxit y is seen without true herniation. No free fluid is seen. No evidence of bowel obstruction is seen. N o bowel wall thickening is noted. Gallbladder shows a small gallstone but no wall thickening or bilia ry dilatation are seen. Pancreas shows no abnormalities. Right kidney shows a tiny probable cyst in the lower pole. No urinary obstructive changes are seen. P rostate is moderately enlarged and impinges on the base of the bladder. Bladder is not fully distende d but probably is a mildly thickened wall suggesting mild hypertrophy. No focal inflammatory changes are seen. No retroperitoneal lymphadenopathy is seen. Shotty nodes are seen in both inguinal areas. Mild prominence of bilateral distal external iliac nodes is seen within the pelvis with largest lying on the left having a length of 19 mm and a short axis diameter of 10 mm . I do not see a more proximal pelvic adenopathy. No mesenteric adenopathy is seen. The appendix appears within normal limits except distally where there is focal expansion to a diamete r of 17 mm with homogenous internal density of 14 Hounsfield units in the water range. No inflammatio n or wall thickening is seen. No wall enhancement is noted. No surrounding inflammatory changes are s een. No appendicolith is identified. IMPRESSION: 1. No obvious acute abnormalities are seen to explain the leukocytosis or diarrhea 2. Cholelithiasis without acute change seen 3. Appendiceal tip expansion as above without obvious inflammatory change, most consistent with a muc ocele. 4. Mild distal external iliac han prominence bilaterally, of doubtful significance but follow-up is suggested. Signer Name: Phil Maldonado MD Signed: 12/31/2018 7:14 PM Workstation Name: [id number]
--- NOTE | 2018-12-31 20:02 | Cat Scan Report ---
CT LEFT LOWER EXTREMITY WITHOUT CONTRAST INDICATION: severe leukocytosis with left leg surg wound CONTRAST: Without IV COMPARISON: None available. All CT scans at this location are performed using CT dose reduction for ALARA by means of automated e xposure control. FINDINGS: Study was performed from the lower thigh to immediately above the ankle joint. Recent surgical changes are seen with skin staple lines laterally and medially in the upper calf. Med ial to the proximal tibia is a mixed density fluid collection with some gas at the incision site whic h presumably represents a seroma/hematoma. This measures 7.5 cm in length and has a thickness of 2.9 cm. This extends to the tibia. Internal density is heterogenous. A moderately defined border is noted . At the lateral incision site there is underlying edema and thickening of tissues and the underlying musculature but I do not see a defined collection. Diffuse subcutaneous edema is seen in this region . No obvious foreign bodies are seen. Soft tissue calcifications are noted near the tibia and fibula. There is old deformity and fragmentation with partial union an old surgical changes in the proximal tibia. Old deformity of the proximal fibula is also seen. Prominent tricompartment degenerative hayden es are noted. No obvious acute fracture is identified. Screw holes are also seen in the tibial shaft. Small knee effusion is seen. IMPRESSION: Recent surgical changes are seen. There is a collection at the medial incision site which probably is a thrombus/hematoma. I cannot determine if this is infected and an early abscess by this study. At the lateral incision site there is edema but no defined collection. Signer Name: Phil Maldonado MD Signed: 12/31/2018 7:57 PM Workstation Name: [id number]
[2018-12-31] MEDS ORDERED: SODIUM FERRIC GLUCON/SUCRO 125 MG in SODIUM CHLORIDE 0.9% 100 ML IV ONE (21:31)
--- NOTE | 2018-12-31 21:42 | Event Note ---
Date: 12/31/18 [id number]
[2019-01-01] MEDS: D5W/0.9% NACL 1,000 ML IV SCH (01:31)
[2019-01-01] MEDS: metroNIDAZOLE/NS 500 MG/100 ML 500 MG/100 ML BAG IV SCH (01:37)
[2019-01-01 04:37] LABS: BUN/Creatinine Ratio 18; Blood Urea Nitrogen 20 mg/dL (9-20); Calcium 8.3 mg/dL (8.4-10.2); Hemolysis Index 28
--- NOTE | 2019-01-01 07:19 | Hem/Onc Progress Note ---
Assessment and Plan 1. Normocytic anemia, likely secondary to bleed. LDH is not elevated. Serum iron is low, low folic acid. Peripheral smear does not mention spherocytosis. Based on clinical scenario, this is more of a bleeding. A transfusion support has been given. I will look into iron support. 2. Orthopedic fracture related issues. Orthopedics is following the patient. 3. Leukocytosis. Infectious Disease saw the patient. 4. Radiology, CT scan mentions possible hematoma. 5. History of diarrhea. 6. History of infection. 7. Thrombocytosis, likely reactive. 8. Renal impairment. 9. I will follow the patient during inpatient stay and then clinic setting. IV iron and OP follow up - Patient Problems (1) Anemia Status: Acute Qualifiers: Anemia type: iron deficiency Iron deficiency anemia type: chronic blood loss Qualified Code(s): D50.0 - Iron deficiency anemia secondary to blood loss (chronic) Subjective Date of service: 01/01/19 Principal diagnosis: anemia Interval history: minimal bleeding Objective - Exam Narrative Exam: Pain - leg General appearance - comfortable Performance status limited self care Eyes - no icterus, ENT - no bleeding LNs cervical not palpable Neck - no LN Respiratory Normal Breath sounds - CTA CVS S1 S2 + Extremities no calf tenderness General GI Soft Rectal deferred male - deferred Skin warm Musculoskeletal moves extremities - bandage + Neurologically awake - oriented - Constitutional Vitals: Last Vital Signs Temp 98.0 F 01/01/19 04:00 Pulse 69 01/01/19 06:17 Resp 15 01/01/19 06:00 BP 134/62 01/01/19 06:00 Pulse Ox 99 01/01/19 06:00 - Labs Lab Results: Laboratory Results - last 24 hr 12/30/18 01/01/19 16:24 03:39 Sodium 130 L Potassium 4.5 Chloride 96.3 L Carbon Dioxide 23 Anion Gap 15 BUN 20 Creatinine 1.1 Estimated GFR > 60 BUN/Creatinine Ratio 18 Glucose 129 H Calcium 8.3 L Procalcitonin 0.10 Medications & Allergies - Medications Allergies/Adverse Reactions: Allergies No Known Allergies Allergy (Unverified 12/29/18 14:01) Home Medications: Home Medications Medication Instructions Recorded Confirmed Last Taken Type Aspirin EC 81 mg PO BID 12/29/18 12/29/18 Unknown History Ondansetron 4 mg PO Q8HR PRN 12/29/18 12/29/18 Unknown History oxyCODONE /ACETAMINOPHEN 5 mg PO PRN PRN 12/29/18 12/29/18 Unknown History Ferrous Gluconate [Ferrous 324 mg PO DAILY #30 tablet 12/31/18 Unknown Rx Gluconate 324 MG] Folic Acid/Vit Bcomp&C/Cu/Znox 1 each PO QDAY #30 tablet 12/31/18 Unknown Rx [Folbee Plus Cz] Active Medications: Generic Name Dose Route Start Last Admin Trade Name Deepthi PRN Reason Stop Dose Admin Acetaminophen 650 mg 12/29/18 20:55 Tylenol PO Q4H PRN Pain MILD(1-3)/Fever >100.5/HURTADO Hydromorphone HCl 0.5 mg 12/29/18 20:55 Dilaudid IV Q3H PRN Pain , Severe (7-10) Cefepime HCl 2 gm in 100 mls @ 200 mls/hr 12/30/18 07:34 12/31/18 21:10 Maxipime/Ns 2 Gm/100 Ml IV 200 mls/hr Q8HR TRISTON Administration Protocol Dextrose/Sodium Chloride 1,000 mls @ 75 mls/hr 12/30/18 11:00 01/01/19 02:37 D5ns IV 75 mls/hr DIRECT TRISTON Infusion Metronidazole 500 mg in 100 mls @ 100 mls/hr 12/30/18 17:00 01/01/19 01:37 Flagyl 500 Mg/100 Ml IV 100 mls/hr Q8H TRISTON Administration Protocol Vancomycin HCl 1,500 mg/ 530 mls @ 353.333 mls/hr 12/31/18 06:00 12/31/18 17:15 Sodium Chloride IV 353.333 mls/hr Q12H TRISTON Administration Ondansetron HCl 4 mg 12/29/18 20:55 12/29/18 21:09 Zofran IV 4 mg Q8H PRN Administration Nausea And Vomiting Oxycodone/Acetaminophen 1 tab 12/29/18 20:55 Percocet 5/325 PO Q6H PRN Pain, Moderate (4-6) Sodium Chloride 10 ml 12/29/18 22:00 12/31/18 21:12 Sodium Chloride Flush Syringe 10 Ml IV 10 ml BID TRISTON Administration Sodium Chloride 10 ml 12/29/18 20:55 12/30/18 11:47 Sodium Chloride Flush Syringe 10 Ml IV 10 ml PRN PRN Administration LINE FLUSH Vitamin B Complex/Folic Acid 1 each 12/31/18 10:00 12/31/18 09:40 Folbee Plus Cz PO 1 each QDAY TRISTON Administration
[2019-01-01] MEDS: CEFEPIME/NS 2 GM/100 ML 2 GM/100 ML BAG IV SCH (08:15)
--- NOTE | 2019-01-01 08:46 | Progress Note ---
Assessment and Plan Assessment and plan: 58-year-old man who presented to the hospital complaining of shortness of breath. Patient admitted to recently having orthopedic procedure for tib-fib fracture, denied bloody stool melena or hematemesis Past medical history; denies any chronic medical conditions, states that his father had blood clots but denies having them personally Chest x-ray; no acute findings Lower extremity Dopplers, negative for DVT VQ scan, low probability for PE Labs, revealed anemia, normocytic in nature Hyponatremia, hyperkalemia, mild rise in creatinine, max creatinine 1.5, now 1.2 Diagnosis Anemia, expected outcome after orthopedic surgery Acute kidney injury due to vasomotor nephropathy and ATN Hyperkalemia SIRS, no evidence of infection at this time Plan Patient was transfused, hemoglobin improved Hyperkalemia was medically treated Creatinine improved with blood transfusion and IV fluids -ID input appreciated, awaiting CT scan of lower extremity, CT abdomen and pelvis, Nephrology input appreciated, awaiting renal ultrasound DVT prophylaxis with SCDs and early ambulation given anemia Tentative discharge tomorrow History Interval history: Review of systems Constitutional: No fevers, no malaise, no joint pains CVS: No chest pain, no orthopnea, no pedal edema GI: No abdominal pain, no diarrhea, no vomiting, no constipation Respiratory: Continues to have dyspnea on exertion, no wheezing, no coughing Hospitalist Physical - Physical exam Narrative exam: General.: Appears well, no distress, nontoxic HEENT: Moist mucous membranes, extraocular muscles intact, no lymphadenopathy Neck: supple Cardiac: S1-S2 heard Lungs: clear to auscultation bilaterally Abdomen: soft , nontender, nondistended, bowel sounds positive Extremities: no edema clubbing or cyanosis Skin: no rash or lesions Neurologic: no gross focal deficits Psych: calm, and cooperative - Constitutional Vitals: Temp Pulse Resp BP Pulse Ox 98.0 F 69 15 134/62 99 01/01/19 04:00 01/01/19 06:17 01/01/19 06:00 01/01/19 06:00 01/01/19 06:00 General appearance: Present: no acute distress, well-nourished Results - Labs CBC & Chem 7: 12/31/18 04:05 01/01/19 03:39 Labs: Laboratory Last Values WBC 16.2 K/mm3 (4.5-11.0) H 12/31/18 04:05 RBC 2.97 M/mm3 (3.65-5.03) L 12/31/18 04:05 Hgb 8.3 gm/dl (11.8-15.2) L 12/31/18 04:05 Hct 25.4 % (35.5-45.6) L D 12/31/18 04:05 MCV 86 fl (84-94) 12/31/18 04:05 MCH 28 pg (28-32) 12/31/18 04:05 MCHC 33 % (32-34) 12/31/18 04:05 RDW 17.0 % (13.2-15.2) H 12/31/18 04:05 Plt Count 406 K/mm3 (140-440) 12/31/18 04:05 Lymph # Workflow Developer 12/29/18 13:23 Add Manual Diff Complete 12/31/18 04:05 Total Counted 100 12/31/18 04:05 Seg Neuts % (Manual) 86.0 % (40.0-70.0) H 12/31/18 04:05 Band Neutrophils % 0 % 12/31/18 04:05 Lymphocytes % (Manual) 9.0 % (13.4-35.0) L 12/31/18 04:05 Reactive Lymphs % (Man) 0 % 12/31/18 04:05 Monocytes % (Manual) 3.0 % (0.0-7.3) 12/31/18 04:05 Eosinophils % (Manual) 0 % (0.0-4.3) 12/31/18 04:05 Basophils % (Manual) 0 % (0.0-1.8) 12/31/18 04:05 Metamyelocytes % 2.0 % 12/31/18 04:05 Myelocytes % 0 % 12/31/18 04:05 Promyelocytes % 0 % 12/31/18 04:05 Blast Cells % 0 % 12/31/18 04:05 Nucleated RBC % 2.0 % (0.0-0.9) H 12/31/18 04:05 Seg Neutrophils # Man 13.9 K/mm3 (1.8-7.7) H 12/31/18 04:05 Band Neutrophils # 0.0 K/mm3 12/31/18 04:05 Lymphocytes # (Manual) 1.5 K/mm3 (1.2-5.4) 12/31/18 04:05 Abs React Lymphs (Man) 0.0 K/mm3 12/31/18 04:05 Monocytes # (Manual) 0.5 K/mm3 (0.0-0.8) 12/31/18 04:05 Eosinophils # (Manual) 0.0 K/mm3 (0.0-0.4) 12/31/18 04:05 Basophils # (Manual) 0.0 K/mm3 (0.0-0.1) 12/31/18 04:05 Metamyelocytes # 0.3 K/mm3 12/31/18 04:05 Myelocytes # 0.0 K/mm3 12/31/18 04:05 Promyelocytes # 0.0 K/mm3 12/31/18 04:05 Blast Cells # 0.0 K/mm3 12/31/18 04:05 Pathologist Review 12/30/18 04:08 WBC Morphology Not Reportable 12/31/18 04:05 Hypersegmented Neuts Not Reportable 12/31/18 04:05 Hyposegmented Neuts Not Reportable 12/31/18 04:05 Hypogranular Neuts Not Reportable 12/31/18 04:05 Smudge Cells Not Reportable 12/31/18 04:05 Toxic Granulation Not Reportable 12/31/18 04:05 Toxic Vacuolation Not Reportable 12/31/18 04:05 Dohle Bodies Not Reportable 12/31/18 04:05 Pelger-Huet Anomaly Not Reportable 12/31/18 04:05 Swapna Rods Not Reportable 12/31/18 04:05 Platelet Estimate Consistent w auto 12/31/18 04:05 Clumped Platelets Not Reportable 12/31/18 04:05 Plt Clumps, EDTA Not Reportable 12/31/18 04:05 Large Platelets 1+ 12/31/18 04:05 Giant Platelets Not Reportable 12/31/18 04:05 Platelet Satelliting Not Reportable 12/31/18 04:05 Plt Morphology Comment Not Reportable 12/31/18 04:05 RBC Morphology Not Reportable 12/31/18 04:05 Dimorphic RBCs Not Reportable 12/31/18 04:05 Polychromasia Few 12/31/18 04:05 Hypochromasia Few 12/31/18 04:05 Poikilocytosis 1+ 12/31/18 04:05 Anisocytosis 1+ 12/31/18 04:05 Microcytosis Few 12/31/18 04:05 Macrocytosis Few 12/31/18 04:05 Spherocytes Not Reportable 12/31/18 04:05 Pappenheimer Bodies Not Reportable 12/31/18 04:05 Sickle Cells Not Reportable 12/31/18 04:05 Target Cells Not Reportable 12/31/18 04:05 Tear Drop Cells Not Reportable 12/31/18 04:05 Ovalocytes Not Reportable 12/31/18 04:05 Helmet Cells Not Reportable 12/31/18 04:05 Iglesias-Netarts Bodies Not Reportable 12/31/18 04:05 [place] Rings Not Reportable 12/31/18 04:05 Leif Cells Not Reportable 12/31/18 04:05 Bite Cells Not Reportable 12/31/18 04:05 Crenated Cell Not Reportable 12/31/18 04:05 Elliptocytes Not Reportable 12/31/18 04:05 Acanthocytes (Spur) Not Reportable 12/31/18 04:05 Rouleaux Not Reportable 12/31/18 04:05 Hemoglobin C Crystals Not Reportable 12/31/18 04:05 Schistocytes Not Reportable 12/31/18 04:05 Malaria parasites Not Reportable 12/31/18 04:05 Donnell Bodies Not Reportable 12/31/18 04:05 Hem Pathologist Commnt No 12/31/18 04:05 PT 14.9 Sec. (12.2-14.9) 12/29/18 15:04 INR 1.20 (0.87-1.13) H 12/29/18 15:04 APTT 20.6 Sec. (24.2-36.6) L 12/29/18 15:04 D-Dimer 493.25 ng/mlDDU (0-234) H 12/29/18 13:23 Heparin Anti-Xa Level 0.30 U.I./ml (0.3-0.7) 12/30/18 04:08 Sodium 130 mmol/L (137-145) L 01/01/19 03:39 Potassium 4.5 mmol/L (3.6-5.0) 01/01/19 03:39 Chloride 96.3 mmol/L (98-107) L 01/01/19 03:39 Carbon Dioxide 23 mmol/L (22-30) 01/01/19 03:39 Anion Gap 15 mmol/L 01/01/19 03:39 BUN 20 mg/dL (9-20) 01/01/19 03:39 Creatinine 1.1 mg/dL (0.8-1.5) 01/01/19 03:39 Estimated GFR > 60 ml/min 01/01/19 03:39 BUN/Creatinine Ratio 18 % 01/01/19 03:39 Glucose 129 mg/dL (75-100) H 01/01/19 03:39 POC Glucose 180 (70-105) H 12/30/18 15:02 Hemoglobin A1c 6.8 % (4-6) H 12/29/18 20:56 Lactic Acid 3.80 mmol/L (0.7-2.0) H* 12/29/18 15:04 Uric Acid 8.5 mg/dL (3.5-7.6) H 12/29/18 15:33 Calcium 8.3 mg/dL (8.4-10.2) L 01/01/19 03:39 Phosphorus 3.20 mg/dL (2.5-4.5) 12/31/18 04:05 Magnesium 2.60 mg/dL (1.7-2.3) H 12/29/18 13:23 Iron 20 ug/dL (49-181) L 12/30/18 07:27 TIBC 311 mcg/dL (250-450) 12/30/18 07:27 Ferritin 127.9 ng/mL (13.0-400.0) 12/30/18 08:22 Total Bilirubin 0.60 mg/dL (0.1-1.2) 12/31/18 04:05 AST 13 units/L (5-40) 12/31/18 04:05 ALT 11 units/L (7-56) 12/31/18 04:05 Alkaline Phosphatase 66 units/L (35-129) 12/31/18 04:05 Lactate Dehydrogenase 167 units/L (91-180) 12/30/18 07:27 Total Creatine Kinase 43 units/L (55-170) L 12/29/18 15:33 Troponin T < 0.010 ng/mL (0.00-0.029) 12/29/18 13:23 NT-Pro-B Natriuret Pep 291.6 pg/mL (0-900) 12/29/18 13:23 Total Protein 6.3 g/dL (6.3-8.2) 12/31/18 04:05 Albumin 3.3 g/dL (3.9-5) L 12/31/18 04:05 Albumin/Globulin Ratio 1.1 % 12/31/18 04:05 Vitamin B12 328.2 pg/mL (211-911) 12/30/18 08:22 Folate 5.32 ng/mL (7.3-26.0) L 12/30/18 08:22 Procalcitonin 0.10 ng/mL (<0.15) 12/30/18 16:24 TSH 1.380 mlU/mL (0.270-4.200) 12/29/18 15:33 Urine Color Yellow (Yellow) 12/30/18 11:58 Urine Turbidity Clear (Clear) 12/30/18 11:58 Urine pH 5.0 (5.0-7.0) 12/30/18 11:58 Ur Specific [place] 1.015 (1.003-1.030) 12/30/18 11:58 Urine Protein <15 mg/dl mg/dL (Negative) 12/30/18 11:58 Urine Glucose (UA) Neg mg/dL (Negative) 12/30/18 11:58 Urine Ketones Neg mg/dL (Negative) 12/30/18 11:58 Urine Blood Neg (Negative) 12/30/18 11:58 Urine Nitrite Neg (Negative) 12/30/18 11:58 Urine Bilirubin Neg (Negative) 12/30/18 11:58 Urine Urobilinogen < 2.0 mg/dL (<2.0) 12/30/18 11:58 Ur Leukocyte Esterase Neg (Negative) 12/30/18 11:58 Urine WBC (Auto) 1.0 /HPF (0.0-6.0) 12/30/18 11:58 Urine RBC (Auto) < 1.0 /HPF (0.0-6.0) 12/30/18 11:58 Urine Mucus Few /HPF 12/30/18 11:58 Urine Osmolality 575 Mosm/kg 12/29/18 23:40 Urine Creatinine 105.6 mg/dL (0.1-20.0) H 12/29/18 23:40 Urine Sodium 28 mmol/L 12/29/18 23:40 Blood Type A POSITIVE 12/30/18 05:10 Antibody Screen Negative 12/30/18 05:10 Crossmatch See Detail 12/30/18 05:10 Active Medications - Current Medications Current Medications: Generic Name Dose Route Start Last Admin Trade Name Freq PRN Reason Stop Dose Admin Acetaminophen 650 mg 12/29/18 20:55 Tylenol PO Q4H PRN Pain MILD(1-3)/Fever >100.5/HURTADO Hydromorphone HCl 0.5 mg 12/29/18 20:55 Dilaudid IV Q3H PRN Pain , Severe (7-10) Cefepime HCl 2 gm in 100 mls @ 200 mls/hr 12/30/18 07:34 01/01/19 08:15 Maxipime/Ns 2 Gm/100 Ml IV 200 mls/hr Q8HR TRISTON Administration Protocol Dextrose/Sodium Chloride 1,000 mls @ 75 mls/hr 12/30/18 11:00 01/01/19 02:37 D5ns IV 75 mls/hr DIRECT TRISTON Infusion Metronidazole 500 mg in 100 mls @ 100 mls/hr 12/30/18 17:00 01/01/19 01:37 Flagyl 500 Mg/100 Ml IV 100 mls/hr Q8H TRISTON Administration Protocol Vancomycin HCl 1,500 mg/ 530 mls @ 353.333 mls/hr 12/31/18 06:00 12/31/18 17:15 Sodium Chloride IV 353.333 mls/hr Q12H TRISTON Administration Ondansetron HCl 4 mg 12/29/18 20:55 12/29/18 21:09 Zofran IV 4 mg Q8H PRN Administration Nausea And Vomiting Oxycodone/Acetaminophen 1 tab 12/29/18 20:55 Percocet 5/325 PO Q6H PRN Pain, Moderate (4-6) Sodium Chloride 10 ml 12/29/18 22:00 12/31/18 21:12 Sodium Chloride Flush Syringe 10 Ml IV 10 ml BID TRISTON Administration Sodium Chloride 10 ml 12/29/18 20:55 12/30/18 11:47 Sodium Chloride Flush Syringe 10 Ml IV 10 ml PRN PRN Administration LINE FLUSH Vitamin B Complex/Folic Acid 1 each 12/31/18 10:00 12/31/18 09:40 Folbee Plus Cz PO 1 each QDAY TRISTON Administration
--- NOTE | 2019-01-01 09:08 | Progress Note ---
Assessment and Plan 1. Acute kidney injury: Vasomotor FARHAD in the setting of volume depletion and sepsis. Renal function has improved. Baseline creatinine 1.2. Continue IV fluids. Monitor renal function. Avoid nephrotoxic agents. Meds dosage based on GFR. 2. FEN: Hyperkalemia, improved. Hyponatremia, monitor. Monitor lytes. 3. Anemia: S/p PRBC. 4. SOB / Respiratory distress: V/Q scan with low prob for PE. 5. Sepsis: Followed by ID. 6. New onset DM. Examination: General appearance: well-developed, well-nourished, appears stated age, not in distress EENT: ATNC, DOROTHY, mucous membranes moist, hearing intact, vision intact Neck: neck supple, trachea midline Respiratory: Clear to auscultation Heart: regular, S1S2, no murmur Gastrointestinal: normoactive bowel sounds, obese, not tender, not distended Integumentary: no rash, L leg dressing note Neurologic: no focal deficit, no asterixis, alert and oriented x3 Musculoskeletal: no edema Subjective Date of service: 01/01/19 Principal diagnosis: anemia Interval history: Patient was seen and examined at the bedside. Feeling better. Objective - Vital Signs Vital signs: Vital Signs - 12hr 12/31/18 12/31/18 12/31/18 21:16 21:30 21:46 Temperature Pulse Rate 81 82 89 Pulse Rate [ From Monitor] Respiratory Rate Blood Pressure 136/61 136/61 136/61 O2 Sat by Pulse 97 99 97 Oximetry 12/31/18 12/31/18 12/31/18 22:00 22:16 22:30 Temperature Pulse Rate 84 81 79 Pulse Rate [ From Monitor] Respiratory Rate Blood Pressure 127/67 127/67 127/67 O2 Sat by Pulse 98 97 97 Oximetry 12/31/18 12/31/18 12/31/18 22:46 23:00 23:14 Temperature Pulse Rate 80 77 80 Pulse Rate [ From Monitor] Respiratory Rate Blood Pressure 127/67 134/70 127/67 O2 Sat by Pulse 97 96 97 Oximetry 12/31/18 12/31/18 12/31/18 23:16 23:30 23:46 Temperature Pulse Rate 80 80 80 Pulse Rate [ From Monitor] Respiratory Rate Blood Pressure 127/67 127/67 127/67 O2 Sat by Pulse 96 95 96 Oximetry 12/31/18 01/01/19 01/01/19 23:49 00:00 00:16 Temperature 98.7 F Pulse Rate 77 82 Pulse Rate [ 80 From Monitor] Respiratory 16 Rate Blood Pressure 108/47 108/47 O2 Sat by Pulse 99 98 Oximetry 01/01/19 01/01/19 01/01/19 01:00 02:00 03:00 Temperature Pulse Rate 72 74 71 Pulse Rate [ From Monitor] Respiratory 16 9 L 17 Rate Blood Pressure 122/58 137/63 130/61 O2 Sat by Pulse 97 96 96 Oximetry 01/01/19 01/01/19 01/01/19 04:00 05:00 06:00 Temperature 98.0 F Pulse Rate 68 68 68 Pulse Rate [ From Monitor] Respiratory 9 L 14 15 Rate Blood Pressure 141/68 149/69 134/62 O2 Sat by Pulse 97 98 99 Oximetry 01/01/19 06:17 Temperature Pulse Rate 69 Pulse Rate [ From Monitor] Respiratory Rate Blood Pressure O2 Sat by Pulse Oximetry - Lab 12/31/18 04:05 01/01/19 03:39 Most recent lab results Calcium 8.3 mg/dL (8.4-10.2) L 01/01/19 03:39 Phosphorus 3.20 mg/dL (2.5-4.5) 12/31/18 04:05 Magnesium 2.60 mg/dL (1.7-2.3) H 12/29/18 13:23 Urine Creatinine 105.6 mg/dL (0.1-20.0) H 12/29/18 23:40 Urine Sodium 28 mmol/L 12/29/18 23:40 Medications & Allergies - Medications Allergies/Adverse Reactions: Allergies No Known Allergies Allergy (Unverified 12/29/18 14:01) Home Medications: Home Medications Medication Instructions Recorded Confirmed Last Taken Type Aspirin EC 81 mg PO BID 12/29/18 12/29/18 Unknown History Ondansetron 4 mg PO Q8HR PRN 12/29/18 12/29/18 Unknown History oxyCODONE /ACETAMINOPHEN 5 mg PO PRN PRN 12/29/18 12/29/18 Unknown History Ferrous Gluconate [Ferrous 324 mg PO DAILY #30 tablet 12/31/18 Unknown Rx Gluconate 324 MG] Folic Acid/Vit Bcomp&C/Cu/Znox 1 each PO QDAY #30 tablet 12/31/18 Unknown Rx [Folbee Plus Cz] Active Medications: Generic Name Dose Route Start Last Admin Trade Name Freq PRN Reason Stop Dose Admin Acetaminophen 650 mg 12/29/18 20:55 Tylenol PO Q4H PRN Pain MILD(1-3)/Fever >100.5/HURTADO Hydromorphone HCl 0.5 mg 12/29/18 20:55 Dilaudid IV Q3H PRN Pain , Severe (7-10) Cefepime HCl 2 gm in 100 mls @ 200 mls/hr 12/30/18 07:34 01/01/19 08:15 Maxipime/Ns 2 Gm/100 Ml IV 200 mls/hr Q8HR TRISTON Administration Protocol Dextrose/Sodium Chloride 1,000 mls @ 75 mls/hr 12/30/18 11:00 01/01/19 02:37 D5ns IV 75 mls/hr DIRECT TRISTON Infusion Metronidazole 500 mg in 100 mls @ 100 mls/hr 12/30/18 17:00 01/01/19 01:37 Flagyl 500 Mg/100 Ml IV 100 mls/hr Q8H TRISTON Administration Protocol Vancomycin HCl 1,500 mg/ 530 mls @ 353.333 mls/hr 12/31/18 06:00 12/31/18 17:15 Sodium Chloride IV 353.333 mls/hr Q12H TRISTON Administration Ondansetron HCl 4 mg 12/29/18 20:55 12/29/18 21:09 Zofran IV 4 mg Q8H PRN Administration Nausea And Vomiting Oxycodone/Acetaminophen 1 tab 12/29/18 20:55 Percocet 5/325 PO Q6H PRN Pain, Moderate (4-6) Sodium Chloride 10 ml 12/29/18 22:00 12/31/18 21:12 Sodium Chloride Flush Syringe 10 Ml IV 10 ml BID TRISTON Administration Sodium Chloride 10 ml 12/29/18 20:55 12/30/18 11:47 Sodium Chloride Flush Syringe 10 Ml IV 10 ml PRN PRN Administration LINE FLUSH Vitamin B Complex/Folic Acid 1 each 12/31/18 10:00 12/31/18 09:40 Folbee Plus Cz PO 1 each QDAY TRISTON Administration
[2019-01-01] MEDS: VANCOMYCIN 1,500 MG in SODIUM CHLORIDE 0.9% 500 ML 500 ML IV SCH (09:11)
--- NOTE | 2019-01-01 10:40 | Progress Note ---
Assessment and Plan Cultures: Blood culture 12/29/2018 no growth today. Assessment: 57 y/o male with of left tibial plataeu fracture s/p internal fixator hardware was removed on 12/24/[address] Pino Reid at [facility], he had also recent diarrhea and a UTI treated with bactrim, admitted on 12/29/2018 with 3-day history of progressive SOB, ALATORRE and malaise: 1) SIRS: better, leukocytosis improving; noted severe anemia and left calf surgical wound with bleeding/oozing since surgery. Likely due to inner left calf surgical site hematoma ? infected. UA negative. Blood culture 12/29/[address] abdomen no abnormalities. Procalcitonin normal. 2) Inner left calf surgical site hematoma ? infected. If infected likely Staph or Strep. Seen on CT 2.9x7.5 cm. Patient with history of left tibial plateau fracture sustained in [place], [place] in December 2017 s/p external fixator then underwent ORIF and removal of external fixator on 01/09/[address] Pino Reid at [facility]. His internal fixator hardware was removed on 12/24/2018 and he was sent on keflex for 6 days. 3) Recent mild UTI on 12/19/2018 given bactrim for 10 days. 4) Thrombocytosis - Plat 599. Likely reactive 5) Hyponatremia: Na 128. 6) FARHAD Creat 1.5. Recommendations: ok to d/c home today from ID stand point with follow up with Ortho zahraa continue cefepime and vancomycin while inpatient stop metronidazole no evidence of colitis surgical wound is not draining currently At discharge will do ceftin 500 mg po BID and doxycycline 100 mg po BID total 7 days Will follow. Sachi Dill MD Infectious Diseases Gear Tester [facility] [phone] Subjective Date of service: 01/01/19 Principal diagnosis: anemia Interval history: patient feels better, no fever. Objective - Exam Narrative Exam: General appearance: Alert in NAD Eyes: anicteric sclerae, moist conjunctivae; no lid-lag; PERRLA HENT: Atraumatic; oropharynx clear with moist mucous membranes and no mucosal ulcerations/no oral thrush; normal hard and soft palate. Lungs: CTA, with normal respiratory effort and no intercostal retractions CV: RRR no murmur Abdomen: Soft, non-tender Extremities: +left calf with edema, there are 2 surgical wound with april no oozing, inner surgical wound no oozing blood Skin: No rash. Psych: Appropriate affect, alert and oriented to person, place and time. Neuro: alert and oriented x 3. Moving all extermities - Constitutional Vitals: Vital Signs Temp Pulse Resp BP Pulse Ox 98.0 F 69 15 134/62 99 01/01/19 04:00 01/01/19 06:17 01/01/19 06:00 01/01/19 06:00 01/01/19 06:00 Temperature -Last 24 Hours Temperature 98.0 F Temperature 98.7 F Temperature 98.8 F Temperature 98.0 F Temperature 98.3 F Temperature 98.3 F - Labs CBC & Chem 7: 12/31/18 04:05 01/01/19 03:39 Labs: Abnormal lab results 01/01/19 Range/Units 03:39 Sodium 130 L (137-145) mmol/L Chloride 96.3 L (98-107) mmol/L Glucose 129 H (75-100) mg/dL Calcium 8.3 L (8.4-10.2) mg/dL
[2019-01-01 11:22] VITALS: BP 132/67
--- NOTE | 2019-01-01 15:17 | Consultation ---
REFERRED BY: Dr. Chappell. REASON FOR CONSULTATION: Anemia. HISTORY OF PRESENT ILLNESS: I saw the patient, a 58-year-old male, in the ICU. The patient had sustained a left tibial fracture in [place], [place] in December 2017. He underwent external fixation, later open reduction and internal fixation. The original fixation was done on 12/30/[address] Pringle by Orthopedics at [facility]. Later on, he had diarrhea in November, he went to [facility] and was treated with Bactrim. I am not sure what happened, but there was some gap. A 58-year-old male with a tibial fracture in [place], [place] in 2017. He underwent orthopedic procedure by Dr. Pringle in December 2017. In November 2018, he had diarrhea and was in the hospital, was given Bactrim and then later Keflex. His surgical wound has been bleeding. He has been seen by Orthopedics for staple removal. He also has been on aspirin. I have been asked to alert the patient in view of anemia. Transfusion support is being looked into, there is a question if this is hemolysis or other cause of anemia. At this time, no headache, no visual disturbances, no ear discharge, no chest pain, no shortness of breath at rest, no vomiting. History of diarrhea present. History of one episode of hematuria in the past, no hematemesis. PAST MEDICAL HISTORY: As above. ALLERGIES: Include none. MEDICATIONS: Reviewed. PHYSICAL EXAMINATION: VITAL SIGNS: Temperature 98.2, pulse 92, respirations 18, BP 148/86. HEENT: Pallor present, no icterus. NECK: No neck lymph nodes. HEART: S1, S2. LUNGS: Clear to auscultation. ABDOMEN: Soft. EXTREMITIES: Bandage present in the left leg. NEUROLOGIC: Alert, awake, oriented. LABORATORY DATA: White cell 26, hemoglobin 6.1, MCV 84, platelet 447. Potassium 5.3, creatinine 1.5, calcium at 9, serum iron low at 20, ferritin 127, B12 328, folate low at 5.3. RADIOLOGY: CT abdomen and pelvis was done, which did not show any abnormality. CT leg was done, which showed some fluid collection and VQ scan was done and this showed low probability of PE. Leg Doppler was done and this leg Doppler did not show any DVT. ASSESSMENT: 1. Normocytic anemia, likely secondary to bleed. LDH is not elevated. Serum iron is low, low folic acid. Peripheral smear does not mention spherocytosis. Based on clinical scenario, this is more of a bleeding. A transfusion support has been given. I will look into iron support. 2. Orthopedic fracture related issues. Orthopedics is following the patient. 3. Leukocytosis. Infectious Disease saw the patient. 4. Radiology, CT scan mentions possible hematoma. 5. History of diarrhea. 6. History of infection. 7. Thrombocytosis, likely reactive. 8. Renal impairment. 9. I will follow the patient during inpatient stay and then clinic setting. JOB# [id number] ALE/JENN
== END 2019-01-01 12:31 | disposition home or self-care (01) | DRG 682 ==
LOC: ED 13:13 → IMCU 15:34
PROVIDERS: ADMIT Internal Medicine; ATTEND Internal Medicine
PROC: 30233N1 Transfusion of Nonautologous Red Blood Cells into Peripheral Vein, Percutaneous Approach (ICD-10-PCS; principal; 2018-12-30)
DX: N17.0 Acute kidney failure with tubular necrosis (principal); R65.11 Systemic inflammatory response syndrome (SIRS) of non-infectious origin with acute organ dysfunction; E87.1 Hypo-osmolality and hyponatremia; R94.31 Abnormal electrocardiogram [ECG] [EKG]; D72.829 Elevated white blood cell count, unspecified; E87.5 Hyperkalemia; D47.3 Essential (hemorrhagic) thrombocythemia; E11.9 Type 2 diabetes mellitus without complications; D50.0 Iron deficiency anemia secondary to blood loss (chronic); Z82.49 Family history of ischemic heart disease and other diseases of the circulatory system; Z86.711 Personal history of pulmonary embolism; Z79.82 Long term (current) use of aspirin; Z79.899 Other long term (current) drug therapy
CPT/HCPCS: 36415; 71045; 74177; 76770; 78582; 80048; 80053; 81001; 82140; 82550; 82570; 82607; 82728; 82747; 82962; 83036; 83550; 83615; 83735; 83880; 83935; 84100; 84132; 84145; 84300; 84443; 84484; 84550; 85007; 85025; 85379; 85520; 85610; 85730; 86850; 86900; 86901; 86920; 87040; 93005; 93010; 93970; 96374; G0378; A9540; A9558; J0610; J0692; J1644; J1815; J2405; J2916; J3370; J7030; J7040; J7042; P9016; Q9967